=== PATIENT | male | born 1985 | race Caucasian/White ===

== ENCOUNTER 2019-05-09 18:53 | Emergency (ER) | payer SELFPAY | END 2019-05-09 19:27 | disposition left against medical advice (07) | LOC: ER 18:59 | DX: M79.672 Pain in left foot (principal); Z53.21 Procedure and treatment not carried out due to patient leaving prior to being seen by health care provider ==

== ENCOUNTER 2021-03-06 01:09 | Emergency (ER) | payer SELFPAY ==
[~2021-03-06] VITALS: Ht 190.5 cm; Wt 90.7 kg
[2021-03-06 02:25] LABS: Urine Bacteria MANY /hpf (None Seen); Urine Blood 1+ /uL (Negative); Urine Mucus FEW (None Seen); Urine Specific Gravity 1.024 (1.001-1.035); Urine WBC 1378 /hpf (0 - 3); Urine WBC Clumps PRESENT /hpf (None Seen)
[2021-03-06] MEDS ORDERED: AZITHROMYCIN 250 MG TAB PO ONE (03:45)
[2021-03-06] MEDS ORDERED: cefTRIAXone SOD 1,000 MG VL IM ONE (03:45)
[2021-03-06 03:58] VITALS: BP 135/89
[2021-03-06 04:13] LABS: Alcohol, Urine < 3.0 mg/dL (0-10); Amphetamine Screen, Urine POSITIVE (NEGATIVE); Barbiturate Scree,Urine NEGATIVE (NEGATIVE); Benzodiazephine Screen, Urine NEGATIVE (NEGATIVE); Cannabinoid Screen, Urine POSITIVE (NEGATIVE); Cocaine Screen, Urine NEGATIVE (NEGATIVE); Opiate Scree,Urine NEGATIVE (NEGATIVE); Phencyclidine Screen, Urine NEGATIVE (NEGATIVE)
[2021-03-06] MEDS ORDERED: IBUPROFEN 800 MG TAB PO ONE (04:15)
== END 2021-03-06 04:23 | disposition home or self-care (01) ==
LOC: ER 01:20
DX: N39.0 Urinary tract infection, site not specified (principal); F15.10 Other stimulant abuse, uncomplicated; F12.10 Cannabis abuse, uncomplicated; F17.210 Nicotine dependence, cigarettes, uncomplicated; Z20.2 Contact with and (suspected) exposure to infections with a predominantly sexual mode of transmission
CPT/HCPCS: 80307; 81001; 96372; 99283; J0696

== ENCOUNTER 2024-04-30 00:54 | Emergency (ER) | payer SELFPAY ==
[~2024-04-30] VITALS: Ht 190.5 cm; Wt 72.6 kg
[2024-04-30 01:37] LABS: Urine Bacteria None Seen /hpf (None Seen)
[2024-04-30 01:47] LABS: Urine Blood Negative /uL (Negative); Urine Clarity Clear (Clear); Urine Color Yellow (Yellow); Urine Mucus FEW (None Seen); Urine Protein, UAD TRACE (Negative); Urine Specific Gravity 1.034 (1.001-1.035); Urine Urobilinogen Normal (Negative); Urine WBC <1 /hpf (0 - 3); Urine pH 5.5 (5.0-9.0)
[2024-04-30 04:27] VITALS: BP 124/84; PULSE 80; RESP 16; TEMP 97.6; O2SAT 97
[2024-04-30] MEDS: IBUPROFEN 800 MG TAB PO ONE (04:41)
== END 2024-04-30 04:49 | disposition home or self-care (01) ==
LOC: ER 00:54
DX: F15.23 Other stimulant dependence with withdrawal (principal); M79.672 Pain in left foot; M79.671 Pain in right foot; F17.210 Nicotine dependence, cigarettes, uncomplicated
CPT/HCPCS: 81001

== ENCOUNTER 2024-05-03 22:30 | Emergency (ER) | payer SELFPAY ==
[~2024-05-03] VITALS: Ht 190.5 cm; Wt 84.5 kg
[2024-05-03 22:58] LABS: Basophils # (auto) 0.1 10 ^3/uL (0-0.2); Basophils % (auto) 1.3 % (0.0-2.0); Eosinophils # (auto) 0.3 10 ^3/uL (0-0.8); Eosinophils % (auto) 3.4 % (0.0-7.0); Hemoglobin 12.3 g/dL (13.5-17.5); Lymphocytes # (auto) 2.4 10 ^3/uL (0.4-5.4); Lymphocytes % (auto) 28.3 % (10.0-50.0); Mean Corpuscular Hemoglobin 29.7 pg (28.0-32.0); Mean Corpuscular Volume 87.2 fL (80.0-100.0); Monocytes # (auto) 0.8 10 ^3/uL (0-1.3); Monocytes % (auto) 9.5 % (0.0-12.0); Neutrophils # (auto) 4.9 10 ^3/uL (1.6-8.6); Neutrophils % (auto) 57.5 % (37.0-80.0); Red Blood Cells 4.13 10^6/uL (4.5-5.90); Red Cell Distribution Width 13.6 % (11.8-14.3); White Blood Cell 8.5 10^3/uL (4.4-10.8)
[2024-05-04 00:57] LABS: Alanine Aminotransferase 12 U/L (7-40); Alkaline Phosphatase 50 U/L (46-116); Anion Gap 4 (5-15); Aspartate Aminotransferase 9 U/L (13-40); BUN/Creatinine Ratio 17.2 (10.0-20.0); Bilirubin, Total 0.3 mg/dL (0.2-1.0); Blood Urea Nitrogen 17 mg/dL (9-23); Calcium 9.1 mg/dL (8.7-10.4); Carbon Dioxide 29 mmol/L (20-30); Chloride 108 mmol/L (98-107); Glucose 103 mg/dL (74-106); Potassium 3.9 mmol/L (3.5-5.1); Sodium 141 mmol/L (136-145); Total Protein 6.5 g/dL (5.7-8.2)
[2024-05-04 01:14] VITALS: BP 124/84; PULSE 90; RESP 16; TEMP 97.9; O2SAT 98
[2024-05-04 01:57] LABS: Partial Thromboplastin Time 26.2 SEC (24.5-34.5); Prothrombin Time 10.6 sec (9.3-11.8)
== END 2024-05-04 04:00 | disposition home or self-care (01) ==
LOC: ER 22:30
DX: R07.9 Chest pain, unspecified (principal); F19.10 Other psychoactive substance abuse, uncomplicated; F17.210 Nicotine dependence, cigarettes, uncomplicated; F15.10 Other stimulant abuse, uncomplicated
CPT/HCPCS: 36415; 71045; 80053; 83880; 84484; 85025; 85610; 85730; 93005

== ENCOUNTER 2024-05-08 16:51 | Emergency (ER) | payer SELFPAY ==
[2024-05-08 17:24] VITALS: BP 153/86; PULSE 107; RESP 18; TEMP 100.1; O2SAT 99
[2024-05-08] MEDS: cefTRIAXone SOD 1,000 MG VL IM ONE (17:36)
[2024-05-08] MEDS ORDERED: IBUP1TAB5 PO (17:51)
[2024-05-08] MEDS ORDERED: BACDST PO (17:51)
== END 2024-05-08 17:58 | disposition home or self-care (01) ==
LOC: ER 17:14
DX: K02.9 Dental caries, unspecified (principal); F15.10 Other stimulant abuse, uncomplicated; F19.10 Other psychoactive substance abuse, uncomplicated; F17.210 Nicotine dependence, cigarettes, uncomplicated
CPT/HCPCS: 96372; 99283; J0696

== ENCOUNTER 2025-05-10 01:49 | Emergency (ER) | payer MEDICAID ==
[~2025-05-10] VITALS: Ht 175.3 cm; Wt 68.2 kg
[~2025-05-10 01:49] MED LIST: BACDST PO; IBUP1TAB5 PO
[2025-05-10] MEDS ORDERED: IBUP-1456 PO (04:16)
[2025-05-10] MEDS ORDERED: CLIN1CAP70 PO (04:16)
[2025-05-10] MEDS ORDERED: PRED20TA2 PO (04:16)
[2025-05-10] MEDS ORDERED: MUPI2OIN2 EX (04:16)
--- NOTE | 2025-05-10 04:17 | ED.PDOC ---
History of Present Illness(SKN HPI Comments 39-year-old male presents to ER with complaints of wound check. Patient with past medical history significant for methamphetamine abuse, presents via EMS for ER for evaluation of wound to left side of face and right lower lip that he states developed one day ago. He rates his current facial pain an 8/10 and denies use of medications for current symptoms. Notes he has had intermittent yellow drainage to wounds on face. Patient also states he has a wound to right thigh that he would like to have evaluated ER today. Patient presents to ER ambulatory on arrival, afebrile, with steady gait, in no distress. Denies fever, body aches, chills, headache, nausea/vomiting or any further s ymptoms/complaints Chief Complaint: Wound Check Time Seen by MD: 02:11 Primary Care Provider: UNKNOWN History of Present Illness: Nurses Notes, Medications, Allergies Allergies: Coded Allergies: NO KNOWN ALLERGIES (Unverified , 03/06/21) Home Meds Active Scripts Prednisone (Prednisone) 20 Mg Tab, 20 MG PO BID for 5 Days, #10 TAB 0 Refills Prov:ANNABELLE BOYCE 05/10/25 Ibuprofen (Ibuprofen) 800 Mg Tab, 1 TAB PO TID PRN, #30 TAB 0 Refills Prov:ANNABELLE BOYCE 05/10/25 Mupirocin (Pseudomonas Fluores (Mupirocin) 2 % Oin, 2 % EX TID for 5 Days, #1 OIN 1 Refill Prov:ANNABELLE BOYCE 05/10/25 Clindamycin Hcl (Clindamycin Hcl) 300 Mg Cap, 300 MG PO QID for 7 Days, #28 CAP 0 Refills Prov:ANNABELLE BOYCE 05/10/25 Ibuprofen Micronized (Ibuprofen) 600 Mg Tab, 600 MG PO Q6HPRN PRN for 5 Days, #20 TAB Prov:GIOVANY CASTANON C T TECH 05/08/24 Sulfamethoxazole W/Trimethopri (Bactrim Ds Tablet) 1 Tab Tb, 1 TAB PO BID for 7 Days, #14 TAB Prov:GIOVANY CASTANON C T TECH 05/08/24 Information Source: Patient Mode of Arrival: EMS Past Medical History PAST MEDICAL HISTORY: Denies Surgical History: Denies all surgeries Family History Family History: Unknown Social History Smoker: Cigarettes, Less Than 1 Pack/Day Alcohol: Denies ETOH Use Drugs: Methamphetamine Lives In: Home Constitutional: denies: chills, diaphoresis, fatigue, fever, malaise, sweats, weakness, others EENTM: reports: others (As stated in HPI) Respiratory: denies: cough, hemoptysis, orthopnea, SOB at rest, shortness of breath, SOB with excertion, stridor, wheezing, others Cardiovascular: denies: chest pain, dizzy spells, diaphoresis, Dyspnea on exertion, edema, irregular heart beat, left arm pain, lightheadedness, palpitations, PND, syncope, others Gastrointestinal: denies: abdomen distended, abdominal pain, blood streaked bowels, constipated, diarrhea, dysphagia, difficulty swallowing, hematemesis, melena, nausea, poor appetite, poor fluid intake, rectal bleeding, rectal pain, vomiting, others Genitourinary: denies: burning, dysuria, flank pain, frequency, hematuria, incontinence, penile discharge, penile sore, pain, testicle pain, testicle swelling, urgency, others Neurological: denies: dizziness, fainting, headache, left sided numbness, left sided weakness, numbness, paresthesia, pre-existing deficit, right sided numbness, right sided weakness, seizure, speech problems, tingling, tremors, weakness, others Musculoskeletal: denies: back pain, gout, joint pain, joint swelling, muscle pain, muscle stiffness, neck pain, others Integumetry: reports: others (As stated in HPI) Allergic/Immunocompromised: denies: Difficulty Healing, Frequent Infections, Hives, Itching, others Hematologic/Lymphatic: denies: anemia, blood clots, easy bleeding, easy bruising, swollen glands, others Endocrine: denies: excessive hunger, excessive sweating, excessive thirst, excessive urination, flushing, intolerance to cold, intolerance to heat, unexplained weight gain, unexplained weight loss, others Psychiatric: denies: anxiety, bipolar disorder, depression, hopeless, panic disorder, schizophrenia, sleepless, suicidal, others Physical Exam General Appearance: No Apparent Distress HEENT: Normal ENT Inspection, PERRL/EOMI, Pharynx Normal, TMs Normal Neck: Full Range of Motion, Non-Tender, Normal Respiratory: Chest Non-Tender, Lungs Clear, No Accessory Muscle Use, No Respiratory Distress, Normal Breath Sounds Cardiovascular: No Murmur, No Gallop, Regular Rate/Rhythm Breast Exam: Deferred Gastrointestinal: NOT DONE Genitalia: Deferred Pelvic: Deferred Rectal: Deferred Extremities: Normal capillary refill, Normal range of motion Neurologic: Alert, No Motor Deficits, Normal Affect, Normal Mood, No Sensory Deficits Cerebellar Function: Normal Reflexes: Normal Skin: Dry, Warm, Other (2 wounds noted to left lower chin and right lower lip with mild surrounding swelling/TTP/erythema localized to wound edges. 1 cm papule also noted to right thigh with mild surroudning swelling/erythema. No flucturance/drainage to wounds noted) Peripheral Pulses: 2+ Radial (R), 2+ Radial (L), 2+ Brachial (R), 2+ Brachial (L) Lymphatic: No Adenopathy Was a procedure done? Was a procedure done?: No Sedation Sedation?: No Differential Diagnosis (INTG) Differential Diagnosis: Abscess, Impetigo Differential Diagnosis: Puncture Wound X-Ray, Labs, Meds, VS Vital Signs Date Time Temp Pulse Resp B/P (MAP) Pulse Ox O2 Delivery O2 Flow Rate FiO2 05/10/25 01:50 98.5 89 20 159/91 99 98.5 Rocephin 1 g IM ordered Solu-Medrol 125 mg IM ordered Ibuprofen 800 mg p.o. 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 take the medications below as prescribed Wound care/cleaning discussed and advised Advised to follow up in two days for wound check Advised to follow up with PCP in 1-2 days Patient verbalized understanding and agreeable with current plan of care Advised to return to ER immediately if symptoms worsen Time of 1ST Reevaluation: 03:54 Reevaluation 1ST: N/A Patient Education/Counseling: Diagnosis, Treatment, Prognosis, Need For Follow Up Family Education/Counseling: No Family Present SEPSIS Sepsis Screen Date sepsis recognized/suspect: May 10, 2025 Time Sepsis recognized/suspect: 015 Recent Procedure: No On Antibiotic Therapy: No Respiratory Rate >20: No Heart Rate >90: No Temp<36 C (96.8 F) or >38.3 C: No SBP <90 or MAP <65 mmHG: No New Acute Mental Status Change: No Is the patient on CPAP, BIPAP,: No Vital Signs Date Time Temp Pulse Resp B/P (MAP) Pulse Ox O2 Delivery O2 Flow Rate FiO2 05/10/25 01:50 98.5 89 20 159/91 99 98.5 Departure 1 Departure Time of Disposition: 04:12 Impression: Primary Impression: Facial cellulitis Disposition: HOME / SELF CARE / HOMELESS Condition: Stable e-Prescriptions Prednisone (Prednisone) 20 Mg Tab 20 MG PO BID for 5 Days, #10 TAB 0 Refills Prov: ANNABELLE BOYCE 05/10/25 Ibuprofen (Ibuprofen) 800 Mg Tab 1 TAB PO TID PRN, #30 TAB 0 Refills Prov: ANNABELLE BOYCE 05/10/25 Mupirocin (Pseudomonas Fluores (Mupirocin) 2 % Oin 2 % EX TID for 5 Days, #1 OIN 1 Refill Prov: ANNABELLE BOYCE 05/10/25 Clindamycin Hcl (Clindamycin Hcl) 300 Mg Cap 300 MG PO QID for 7 Days, #28 CAP 0 Refills Prov: ANNABELLE BOYCE 05/10/25 Discharged With: Friend Critical Care Note Critical Care Time?: No Stability Stability form required: No Heart Score Heart Score: Heart Score Response (Comments) Value History N/A 0 EKG N/A 0 Age N/A 0 Risk Factors N/A 0 Troponin N/A 0 Total 0 ANNABELLE BOYCE May 10, 2025 04:17
[2025-05-10] MEDS: methylPREDNISolone SOD SUCC 125 MG/2 ML VL IM ONE (04:28)
[2025-05-10] MEDS: cefTRIAXone SOD 1,000 MG VL IM ONE (04:28)
[2025-05-10] MEDS: LIDOCAINE 1% HCL (LOCAL ANESTH.) INJ 20ML MDV IJ ONE (04:29)
[2025-05-10] MEDS: IBUPROFEN 800 MG TAB PO ONE (04:29)
[2025-05-10 04:48] VITALS: BP 147/95; PULSE 93; RESP 16; TEMP 98.7; O2SAT 100
== END 2025-05-10 04:56 | disposition home or self-care (01) ==
LOC: EDBD 01:49 → ER 01:51
DX: L03.211 Cellulitis of face (principal); F17.210 Nicotine dependence, cigarettes, uncomplicated; F19.90 Other psychoactive substance use, unspecified, uncomplicated; Z79.899 Other long term (current) drug therapy; Z79.52 Long term (current) use of systemic steroids
CPT/HCPCS: 96372; 99284; J0696; J2003; J2919

== ENCOUNTER 2025-05-17 17:07 | Emergency (ER) | payer MEDICAID ==
[~2025-05-17] VITALS: Ht 190.5 cm; Wt 70.7 kg
[~2025-05-17 17:07] MED LIST changes: +CLIN1CAP70 PO; +IBUP-1456 PO; +MUPI2OIN2 EX; +PRED20TA2 PO
[2025-05-17] MEDS ORDERED: MUPI2CRE17 EX (18:45)
[2025-05-17] MEDS ORDERED: AUG875T PO (18:45)
--- NOTE | 2025-05-17 18:50 | ED.PDOC ---
History of Present Illness(SKN HPI Comments 39 year old male presents to the ED with a chief complaint of wound check onset today. Patient has been experiencing facial wound for about 2 weeks, was seen in this ED on 05/10/25 for same symptoms, was diagnosed with cellulitis, prescribed antibiotics. 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 For the past 5 days, noticed wound on chin is worsening, spreading, area is swollen. He noticed wound on RT thumb, concerned infection is spreading. Denies any PMHx as well as chest pain, shortness of breath, fevers, chills, nausea, vomiting, diarrhea, headache. No other symptoms or modifying factors present at this time. Chief Complaint: Abscess Time Seen by MD: 18:25 Primary Care Provider: UNKNOWN History of Present Illness: Medications, Allergies Allergies: Coded Allergies: NO KNOWN ALLERGIES (Unverified , 03/06/21) Home Meds Active Scripts Mupirocin Calcium (Topical) (MUPIROCIN) 2 % Cre, 2 % EX TID for 10 Days, #90 CRE Prov:GUICHO RUCKER MD 05/17/25 Amoxicillin & Pot Clavulanate (AUGMENTIN TABLET) 875 Mg Tb, 875 MG PO BID PRN for 10 Days, #20 TAB Prov:GUICHO RUCKER MD 05/17/25 Prednisone (Prednisone) 20 Mg Tab, 20 MG PO BID for 5 Days, #10 TAB 0 Refills Prov:ANNABELLE BOYCE 05/10/25 Ibuprofen (Ibuprofen) 800 Mg Tab, 1 TAB PO TID PRN, #30 TAB 0 Refills Prov:ANNABELLE BOYCE 05/10/25 Mupirocin (Pseudomonas Fluores (Mupirocin) 2 % Oin, 2 % EX TID for 5 Days, #1 OIN 1 Refill Prov:ANNABELLE BOYCE 05/10/25 Clindamycin Hcl (Clindamycin Hcl) 300 Mg Cap, 300 MG PO QID for 7 Days, #28 CAP 0 Refills Prov:ANNABELLE BOYCE 05/10/25 Ibuprofen Micronized (Ibuprofen) 600 Mg Tab, 600 MG PO Q6HPRN PRN for 5 Days, #20 TAB Prov:GIOVANY CASTANON 05/08/24 Sulfamethoxazole W/Trimethopri (Bactrim Ds Tablet) 1 Tab Tb, 1 TAB PO BID for 7 Days, #14 TAB Prov:GIOVANY CASTANON CRIMP SETTER 05/08/24 Information Source: Patient Mode of Arrival: Ambulatory Severity: Moderate Timing: Weeks Duration: Since onset Prehospital treatment: None Location: Face Associated Signs and Symptoms: Redness, Facial Swelling Past Medical History PAST MEDICAL HISTORY: Denies Surgical History: Denies all surgeries Family History Family History: Unknown Social History Smoker: Cigarettes, Less Than 1 Pack/Day Alcohol: Denies ETOH Use Drugs: Methamphetamine Lives In: Homeless Constitutional: denies: chills, diaphoresis, fatigue, fever, malaise, sweats, weakness, others EENTM: denies: blurred vision, double vision, ear bleeding, ear discharge, ear drainage, ear pain, ear ringing, eye pain, eye redness, hearing loss, mouth pain, mouth swelling, nasal discharge, nose bleeding, nose congestion, nose pain, photophobia, tearing, throat pain, throat swelling, voice changes, others Respiratory: denies: cough, hemoptysis, orthopnea, SOB at rest, shortness of breath, SOB with excertion, stridor, wheezing, others Cardiovascular: denies: chest pain, dizzy spells, diaphoresis, Dyspnea on exertion, edema, irregular heart beat, left arm pain, lightheadedness, palpitations, PND, syncope, others Gastrointestinal: denies: abdomen distended, abdominal pain, blood streaked bowels, constipated, diarrhea, dysphagia, difficulty swallowing, hematemesis, melena, nausea, poor appetite, poor fluid intake, rectal bleeding, rectal pain, vomiting, others Genitourinary: denies: burning, dysuria, flank pain, frequency, hematuria, incontinence, penile discharge, penile sore, pain, testicle pain, testicle swelling, urgency, others Neurological: denies: dizziness, fainting, headache, left sided numbness, left sided weakness, numbness, paresthesia, pre-existing deficit, right sided numbness, right sided weakness, seizure, speech problems, tingling, tremors, weakness, others Musculoskeletal: denies: back pain, gout, joint pain, joint swelling, muscle pain, muscle stiffness, neck pain, others Integumetry: reports: wounds; denies: bruises, change in color, change in hair /nails, dryness, laceration, lesions, lumps, rash, others Allergic/Immunocompromised: denies: Difficulty Healing, Frequent Infections, Hives, Itching, others Hematologic/Lymphatic: denies: anemia, blood clots, easy bleeding, easy bruising, swollen glands, others Endocrine: denies: excessive hunger, excessive sweating, excessive thirst, excessive urination, flushing, intolerance to cold, intolerance to heat, unexplained weight gain, unexplained weight loss, others Psychiatric: denies: anxiety, bipolar disorder, depression, hopeless, panic disorder, schizophrenia, sleepless, suicidal, others All Other Systems: Reviewed and Negative Physical Exam General Appearance: Normal HEENT: Normal ENT Inspection, Pharynx Normal, TMs Normal Neck: Full Range of Motion, Non-Tender, Normal, Normal Inspection Respiratory: Chest Non-Tender, Lungs Clear, No Accessory Muscle Use, No Respiratory Distress, Normal Breath Sounds Cardiovascular: No Edema, No JVD, No Murmur, No Gallop, Normal Peripheral Pulses, Regular Rate/Rhythm Breast Exam: Deferred Gastrointestinal: No Organomegaly, Non Tender, No Pulsatile Mass, Normal Bowel Sounds, Soft Genitalia: Deferred Pelvic: Deferred Rectal: Deferred Extremities: No calf tenderness, Normal capillary refill, Normal inspection, Normal range of motion, Non-tender, No pedal edema Musculoskeletal : Apperance: Normal Neurologic: Alert, count team clerk II-XII nml as Tested, No Motor Deficits, Normal Affect, Normal Mood, No Sensory Deficits Cerebellar Function: Normal Reflexes: Normal Skin: Dry, Normal Color, Warm Lymphatic: No Adenopathy Was a procedure done? Was a procedure done?: No X-Ray, Labs, Meds, VS Vital Signs Date Time Temp Pulse Resp B/P (MAP) Pulse Ox O2 Delivery O2 Flow Rate FiO2 05/17/25 22:50 98.9 84 19 139/87 (104) 98 98.9 05/17/25 17:10 98.4 100 18 143/89 98 98.4 Current Medications Medications (Trade) Dose Ordered Sig/Sukhwinder Route Start Time Stop Time Status Last Admin Amoxicillin/ Clavulanate Potassium (Augmentin Tablet) 875 mg ONCE ONCE PO 05/17/25 18:45 05/17/25 18:46 DC 05/17/25 22:48 Acetaminophen (Tylenol Tablet) 650 mg ONCE ONCE PO 05/17/25 22:45 05/17/25 22:46 DC 05/17/25 22:48 Time of 1ST Reevaluation: 18:55 Reevaluation 1ST: Unchanged Patient Education/Counseling: Diagnosis, Treatment Family Education/Counseling: No Family Present SEPSIS Sepsis Screen Date sepsis recognized/suspect: May 17, 2025 Time Sepsis recognized/suspect: 1709 Recent Procedure: No On Antibiotic Therapy: No Respiratory Rate >20: No Heart Rate >90: Yes Temp<36 C (96.8 F) or >38.3 C: No SBP <90 or MAP <65 mmHG: No New Acute Mental Status Change: No Is the patient on CPAP, BIPAP,: No Vital Signs Date Time Temp Pulse Resp B/P (MAP) Pulse Ox O2 Delivery O2 Flow Rate FiO2 05/17/25 22:50 98.9 84 19 139/87 (104) 98 98.9 05/17/25 17:10 98.4 100 18 143/89 98 98.4 Medications Medications Dose Ordered Sig/Sukhwinder Route Start Time Stop Time Status Last Admin Dose Admin Acetaminophen 650 mg ONCE ONCE PO 05/17/25 22:45 05/17/25 22:46 DC 05/17/25 22:48 Amoxicillin/ Clavulanate Potassium 875 mg ONCE ONCE PO 05/17/25 18:45 05/17/25 18:46 DC 05/17/25 22:48 Departure 1 Departure Time of Disposition: 20:00 Impression: Primary Impression: Erysipelas Additional Impressions: Erysipelas of face Facial cellulitis Disposition: HOME / SELF CARE / HOMELESS Condition: Stable e-Prescriptions Mupirocin Calcium (Topical) (MUPIROCIN) 2 % Cre 2 % EX TID for 10 Days, #90 CRE Prov: GUICHO RUCKER MD 05/17/25 Amoxicillin & Pot Clavulanate (AUGMENTIN TABLET) 875 Mg Tb 875 MG PO BID PRN for 10 Days, #20 TAB Prov: GUICHO RUCKER MD 05/17/25 Discharged With: Self Critical Care Note Critical Care Time?: No Stability Stability form required: No I personally scribed for GUICHO RUCKER MD ([email or web address]) on 05/17/25 at 18:50. Electronically submitted by Liliane Swanson ([email or web address]). GUICHO RUCKER MD May 17, 2025 18:50
[2025-05-17] MEDS: AMOXICILLIN/CLAVUL 875 MG TAB PO ONE (22:48)
[2025-05-17] MEDS: ACETAMINOPHEN 325 MG TAB PO ONE (22:48)
[2025-05-17 22:50] VITALS: BP 139/87; PULSE 84; RESP 19; TEMP 98.9; O2SAT 98
== END 2025-05-17 22:57 | disposition home or self-care (01) ==
LOC: ER 17:07
DX: A46 Erysipelas (principal); L03.211 Cellulitis of face; F17.210 Nicotine dependence, cigarettes, uncomplicated; F19.90 Other psychoactive substance use, unspecified, uncomplicated; Z59.00 Homelessness unspecified; Z79.52 Long term (current) use of systemic steroids; Z79.899 Other long term (current) drug therapy

== ENCOUNTER 2025-05-18 07:26 | Inpatient (IN) | payer MEDICAID ==
[~2025-05-18] VITALS: Ht 190.5 cm; Wt 69.7 kg
[~2025-05-18 07:26] MED LIST changes: +AUG875T PO; +MUPI2CRE17 EX
--- NOTE | 2025-05-18 07:55 | ED.PDOC ---
History of Present Illness(SKN HPI Comments 39 y/o M, with PMHx of illicit drug usage presents to the ED for CC of facial swelling. Patient states, he has been experiencing increased facial swelling with associated erythema and warmth [id number]. Patient reports, that he has been seen at [facility] 3x since, commencement of symptoms and they have yet to improve. 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 At this time patient has moderate swelling to his left lower jaw with a small abrasion to his left lower lip that appears to have purulent fluid. Patient denies fever, chills, sweats, nausea, or vomiting. No other symptoms or modifying factors are present at this time. Chief Complaint: Face pain Time Seen by MD: 07:40 Primary Care Provider: UNKNOWN History of Present Illness: Nurses Notes, Medications, Allergies Allergies: Coded Allergies: NO KNOWN ALLERGIES (Unverified , 03/06/21) Home Meds Active Scripts Mupirocin Calcium (Topical) (MUPIROCIN) 2 % Cre, 2 % EX TID for 10 Days, #90 CRE Prov:GUICHO RUCKER MD 05/17/25 Amoxicillin & Pot Clavulanate (AUGMENTIN TABLET) 875 Mg Tb, 875 MG PO BID PRN for 10 Days, #20 TAB Prov:GUICHO RUCKER MD 05/17/25 Prednisone (Prednisone) 20 Mg Tab, 20 MG PO BID for 5 Days, #10 TAB 0 Refills Prov:ANNABELLE BOYCE 05/10/25 Ibuprofen (Ibuprofen) 800 Mg Tab, 1 TAB PO TID PRN, #30 TAB 0 Refills Prov:ANNABELLE BOYCE 05/10/25 Mupirocin (Pseudomonas Fluores (Mupirocin) 2 % Oin, 2 % EX TID for 5 Days, #1 OIN 1 Refill Prov:ANNABELLE BOYCE 05/10/25 Clindamycin Hcl (Clindamycin Hcl) 300 Mg Cap, 300 MG PO QID for 7 Days, #28 CAP 0 Refills Prov:ANNABELLE BOYCE 05/10/25 Ibuprofen Micronized (Ibuprofen) 600 Mg Tab, 600 MG PO Q6HPRN PRN for 5 Days, #20 TAB Prov:GIOVANY CASTANON 05/08/24 Sulfamethoxazole W/Trimethopri (Bactrim Ds Tablet) 1 Tab Tb, 1 TAB PO BID for 7 Days, #14 TAB Prov:GIOVANY CASTANON [facility] 05/08/24 Information Source: Patient Mode of Arrival: Ambulatory Severity: Moderate Timing: Weeks Duration: Since onset Prehospital treatment: None Location: Face Mechanism: Spontaneous Onset Developed: Facial Swelling Object: None Condition of Object: None Retained Foreign Body: Unknown Wound Type: Abrasion Immunization Status of Animal: NA Tetanus: Unknown History of: None Associated Signs and Symptoms: Redness, Swelling, Pus, Facial Swelling Past Medical History PAST MEDICAL HISTORY: Denies Surgical History: Denies all surgeries Family History Family History: Unknown Social History Smoker: Cigarettes, Less Than 1 Pack/Day Alcohol: Denies ETOH Use Drugs: Methamphetamine Lives In: Homeless Constitutional: denies: chills, diaphoresis, fatigue, fever, malaise, sweats, weakness, others EENTM: reports: others (Facial pain, facial swelling); denies: blurred vision, double vision, ear bleeding, ear discharge, ear drainage, ear pain, ear ringing, eye pain, eye redness, hearing loss, mouth pain, mouth swelling, nasal discharge, nose bleeding, nose congestion, nose pain, photophobia, tearing, throat pain, throat swelling, voice changes Respiratory: denies: cough, hemoptysis, orthopnea, SOB at rest, shortness of breath, SOB with excertion, stridor, wheezing, others Cardiovascular: denies: chest pain, dizzy spells, diaphoresis, Dyspnea on exertion, edema, irregular heart beat, left arm pain, lightheadedness, palpitations, PND, syncope, others Gastrointestinal: denies: abdomen distended, abdominal pain, blood streaked bowels, constipated, diarrhea, dysphagia, difficulty swallowing, hematemesis, melena, nausea, poor appetite, poor fluid intake, rectal bleeding, rectal pain, vomiting, others Genitourinary: denies: burning, dysuria, flank pain, frequency, hematuria, incontinence, penile discharge, penile sore, pain, testicle pain, testicle swelling, urgency, others Neurological: denies: dizziness, fainting, headache, left sided numbness, left sided weakness, numbness, paresthesia, pre-existing deficit, right sided numbness, right sided weakness, seizure, speech problems, tingling, tremors, weakness, others Musculoskeletal: denies: back pain, gout, joint pain, joint swelling, muscle pain, muscle stiffness, neck pain, others Integumetry: denies: bruises, change in color, change in hair/nails, dryness, laceration, lesions, lumps, rash, wounds, others Allergic/Immunocompromised: denies: Difficulty Healing, Frequent Infections, Hives, Itching, others Hematologic/Lymphatic: denies: anemia, blood clots, easy bleeding, easy bruising, swollen glands, others Endocrine: denies: excessive hunger, excessive sweating, excessive thirst, excessive urination, flushing, intolerance to cold, intolerance to heat, unexplained weight gain, unexplained weight loss, others All Other Systems: Reviewed and Negative Physical Exam General Appearance: No Apparent Distress, Normal HEENT: Normal ENT Inspection, Pharynx Normal, Other (swelling to the left lower jaw and lips, erythema, warmth) Neck: Full Range of Motion, Non-Tender, Normal, Normal Inspection Respiratory: Chest Non-Tender, Lungs Clear, No Accessory Muscle Use, No Respiratory Distress, Normal Breath Sounds Cardiovascular: No Edema, No Murmur, No Gallop, Normal Peripheral Pulses, Regular Rate/Rhythm Breast Exam: Deferred Gastrointestinal: No Organomegaly, Non Tender, No Pulsatile Mass, Normal Bowel Sounds, Soft Genitalia: Deferred Pelvic: Deferred Rectal: Deferred Extremities: No calf tenderness, Normal capillary refill, Normal inspection, No rmal range of motion, Non-tender, No pedal edema Musculoskeletal : Apperance: Normal Neurologic: Alert, managing editor II-XII nml as Tested, No Motor Deficits, Normal Affect, Normal Mood, No Sensory Deficits Cerebellar Function: Normal Reflexes: Normal Skin: Dry, Other (abrasion to left lower lip with purulent drainage) Lymphatic: No Adenopathy Was a procedure done? Was a procedure done?: No Differential Diagnosis (INTG) Differential Diagnosis: Abscess, Cellulitis, Erysipelas X-Ray, Labs, Meds, VS Vital Signs Date Time Temp Pulse Resp B/P (MAP) Pulse Ox O2 Delivery O2 Flow Rate FiO2 05/18/25 08:30 79 16 99 Room Air* 0 21 05/18/25 08:30 99.1 79 14 145/92 (109) 99 99.1 05/18/25 07:31 97.6 90 16 150/106 98 97.6 Lab Test 05/18/25 08:15 Range/Units White Blood Count 12.8 H 4.4-10.8 10^3/uL Red Blood Count 4.46 L 4.5-5.90 10^6/uL Hemoglobin 13.0 L 13.5-17.5 g/dL Hematocrit 38.3 L 41.0-53.0 % Mean Corpuscular Volume 85.9 80.0-100.0 fL Mean Corpuscular Hemoglobin 29.2 28.0-32.0 pg Mean Corpuscular Hemoglobin Concent 34.0 32.0-36.0 g/dL Red Cell Distribution Width 14.1 11.8-14.3 % Platelet Count 426 140-450 10^3/uL Mean Platelet Volume 8.4 6.9-10.8 fL Neutrophils (%) (Auto) 76.4 37.0-80.0 % Lymphocytes (%) (Auto) 13.6 10.0-50.0 % Monocytes (%) (Auto) 7.7 0.0-12.0 % Eosinophils (%) (Auto) 1.3 0.0-7.0 % Basophils (%) (Auto) 1.0 0.0-2.0 % Neutrophils # (Auto) 9.8 H 1.6-8.6 10 ^3/uL Lymphocytes # (Auto) 1.7 0.4-5.4 10 ^3/uL Monocytes # (Auto) 1.0 0-1.3 10 ^3/uL Eosinophils # (Auto) 0.2 0-0.8 10 ^3/uL Basophils # (Auto) 0.1 0-0.2 10 ^3/uL Nucleated Red Blood Cells 0.0 % Sodium Level 138 136-145 mmol/L Potassium Level 4.0 3.5-5.1 mmol/L Chloride Level 103 98-107 mmol/L Carbon Dioxide Level 25 20-31 mmol/L Anion Gap 10 5-15 Blood Urea Nitrogen 13 9-23 mg/dL Creatinine 0.79 0.700-1.30 mg/dL Glomerular Filtration Rate Calc 115 >90 mL/min BUN/Creatinine Ratio 16.5 10.0-20.0 Serum Glucose 99 74-106 mg/dL Lactic Acid Level 0.5 0.4-2.0 mmol/L Calcium Level 9.3 8.7-10.4 mg/dL Current Medications Medications (Trade) Dose Ordered Sig/Sukhwinder Route Start Time Stop Time Status Last Admin Vancomycin HCl 250 ml @ 250 mls/hr ONCE ONCE IV 05/18/25 08:15 05/18/25 09:14 DC 05/18/25 09:10 Time of 1ST Reevaluation: 08:10 Reevaluation 1ST: Unchanged Patient Education/Counseling: Diagnosis, Treatment Family Education/Counseling: No Family Present SEPSIS Sepsis Screen Date sepsis recognized/suspect: May 18, 2025 Time Sepsis recognized/suspect: 729 Recent Procedure: No On Antibiotic Therapy: Yes Respiratory Rate >20: No Heart Rate >90: No Temp<36 C (96.8 F) or >38.3 C: No SBP <90 or MAP <65 mmHG: No New Acute Mental Status Change: No Is the patient on CPAP, BIPAP,: No Physician Orders Blood Culture (05/18/25 08:03) Vital Signs Date Time Temp Pulse Resp B/P (MAP) Pulse Ox O2 Delivery O2 Flow Rate FiO2 05/18/25 08:30 79 16 99 Room Air* 0 21 05/18/25 08:30 99.1 79 14 145/92 (109) 99 99.1 05/18/25 07:31 97.6 90 16 150/106 98 97.6 Laboratory Tests Test 05/18/25 08:15 Lactic Acid Level 0.5 mmol/L (0.4-2.0) White Blood Count 12.8 10^3/uL (4.4-10.8) H Medications Medications Dose Ordered Sig/Sukhwinder Route Start Time Stop Time Status Last Admin Dose Admin Vancomycin HCl 250 ml @ 250 mls/hr ONCE ONCE IV 05/18/25 08:15 05/18/25 09:14 DC 05/18/25 09:10 Departure 1 Departure Time of Disposition: 10:32 (Patient with a worsening cellulitis. We will admit patient for further workup and expert consultation) Impression: Primary Impression: Facial cellulitis Disposition: ADMITTED INPATIENT Admit to: Med Surg Condition: Serious Critical Care Note Critical Care Time?: No Stability Stability form required: No Heart Score Heart Score: Heart Score Response (Comments) Value History N/A 0 EKG N/A 0 Age N/A 0 Risk Factors N/A 0 Troponin N/A 0 Total 0 I personally scribed for LEONIDES YOUNG MD ([email or web address]) on 05/18/25 at 07:55. Electronically submitted by Naa Ferrari ([email or web address]). LEONIDES YOUNG MD May 18, 2025 07:55
[2025-05-18 08:30] VITALS: PULSE 79; RESP 16; O2SAT 99
[2025-05-18 09:02] LABS: Hematocrit 38.3 % (41.0-53.0); Hemoglobin 13.0 g/dL (13.5-17.5); Mean Corpuscular Hemoglobin 29.2 pg (28.0-32.0); Mean Corpuscular Volume 85.9 fL (80.0-100.0); Nucleated Red Blood Cells % 0.0 %
[2025-05-18 09:07] LABS: Chloride 103 mmol/L (98-107); Potassium 4.0 mmol/L (3.5-5.1); Sodium 138 mmol/L (136-145)
[2025-05-18 09:08] LABS: Anion Gap 10 (5-15); Calcium 9.3 mg/dL (8.7-10.4); Carbon Dioxide 25 mmol/L (20-31)
[2025-05-18] MEDS: VANCOMYCIN 1GM/250ML KIT 250 ML IV ONE (09:10)
[2025-05-18 09:13] LABS: BUN/Creatinine Ratio 16.5 (10.0-20.0); Blood Urea Nitrogen 13 mg/dL (9-23); Glucose 99 mg/dL (74-106)
[2025-05-18] MEDS: KETOROLAC TROMETH 30 MG/ML 1ML VIAL IV ONE (13:35)
[2025-05-18] MEDS ORDERED: MORPHINE SULFATE INJ 2 MG/ml SYRG IV PRN (14:45)
[2025-05-18] MEDS ORDERED: HYDROcodone-ACET 5/325MG TAB PO PRN (14:45)
[2025-05-18] MEDS ORDERED: VANCOMYCIN PER PHARMACY 0 MG IV SCH (14:45)
[2025-05-18] MEDS ORDERED: ONDANSETRON HCL 4 MG/2 ML VIAL IV PRN (14:45)
--- NOTE | 2025-05-18 15:10 | DVHHP2 ---
History of Present Illness Reason for Visit: Facial pain and swelling History of Present Illness Sd Yoder is a 39-year-old male with past medical history of marijuana and cigarette use who presents to the ED with facial swelling and pain that occurred 2 weeks ago. Patient states that he just suddenly woke up with i t. He also reports that he is homeless. Patient denies any recent trauma or injury, recent sick contacts, recent travels, recent ingestion of spoiled food, chest pain, fever, chills, lightheadedness, weakness, dizziness, urinary symptoms, shortness of breath, abdominal pain, nausea, vomiting, or diarrhea. Past Surgical History: None Family History: None Smoke: <1 pack per day ALCOHOL: none Drugs: Marijuana Lives: Homeless Domestic Violence: Neg Review of Systems Skin: Lesions Allergies: Coded Allergies: NO KNOWN ALLERGIES (Unverified , 03/06/21) Exam Vital Signs Vital Signs Date Time Temp Pulse Resp B/P (MAP) Pulse Ox O2 Delivery O2 Flow Rate FiO2 05/18/25 08:30 79 16 99 Room Air* 0 21 05/18/25 08:30 99.1 145/92 (109) 99.1 General Appearance: Alert, Oriented X3, Cooperative, No acute distress HEENT: Atraumatic, PERRLA, EOMI, Mucous membr. moist/pink Respiratory: Clear to auscultation, Normal air movement Cardiovascular: Regular rate, Normal S1, Normal S2, No murmurs Abdominal: Normal bowel sounds, Soft Extremities: Normal pulses, No tenderness/swelling Neuro: Normal gait, Normal speech, Strength at 5/5 X4 ext, Normal tone, Sensation intact Psych/Mental Status: Mental status NL, Mood NL Labs/Xrays Labs Test 05/18/25 08:15 Range/Units White Blood Count 12.8 H 4.4-10.8 10^3/uL Red Blood Count 4.46 L 4.5-5.90 10^6/uL Hemoglobin 13.0 L 13.5-17.5 g/dL Hematocrit 38.3 L 41.0-53.0 % Mean Corpuscular Volume 85.9 80.0-100.0 fL Mean Corpuscular Hemoglobin 29.2 28.0-32.0 pg Mean Corpuscular Hemoglobin Concent 34.0 32.0-36.0 g/dL Red Cell Distribution Width 14.1 11.8-14.3 % Platelet Count 426 140-450 10^3/uL Mean Platelet Volume 8.4 6.9-10.8 fL Neutrophils (%) (Auto) 76.4 37.0-80.0 % Lymphocytes (%) (Auto) 13.6 10.0-50.0 % Monocytes (%) (Auto) 7.7 0.0-12.0 % Eosinophils (%) (Auto) 1.3 0.0-7.0 % Basophils (%) (Auto) 1.0 0.0-2.0 % Neutrophils # (Auto) 9.8 H 1.6-8.6 10 ^3/uL Lymphocytes # (Auto) 1.7 0.4-5.4 10 ^3/uL Monocytes # (Auto) 1.0 0-1.3 10 ^3/uL Eosinophils # (Auto) 0.2 0-0.8 10 ^3/uL Basophils # (Auto) 0.1 0-0.2 10 ^3/uL Nucleated Red Blood Cells 0.0 % Sodium Level 138 136-145 mmol/L Potassium Level 4.0 3.5-5.1 mmol/L Chloride Level 103 98-107 mmol/L Carbon Dioxide Level 25 20-31 mmol/L Anion Gap 10 5-15 Blood Urea Nitrogen 13 9-23 mg/dL Creatinine 0.79 0.700-1.30 mg/dL Glomerular Filtration Rate Calc 115 >90 mL/min BUN/Creatinine Ratio 16.5 10.0-20.0 Serum Glucose 99 74-106 mg/dL Lactic Acid Level 0.5 0.4-2.0 mmol/L Calcium Level 9.3 8.7-10.4 mg/dL SEPSIS Sepsis Screen Date sepsis recognized/suspect: May 18, 2025 Time Sepsis recognized/suspect: 829 Recent Procedure: No On Antibiotic Therapy: No Respiratory Rate >20: No Heart Rate >90: No Temp<36 C (96.8 F) or >38.3 C: No SBP <90 or MAP <65 mmHG: No New Acute Mental Status Change: No Is the patient on CPAP, BIPAP,: No Physician Orders Blood Culture (05/18/25 08:03) Vital Signs Date Time Temp Pulse Resp B/P (MAP) Pulse Ox O2 Delivery O2 Flow Rate FiO2 05/18/25 08:30 79 16 99 Room Air* 0 21 05/18/25 08:30 99.1 79 14 145/92 (109) 99 99.1 05/18/25 07:31 97.6 90 16 150/106 98 97.6 Laboratory Tests Test 05/18/25 08:15 Lactic Acid Level 0.5 mmol/L (0.4-2.0) White Blood Count 12.8 10^3/uL (4.4-10.8) H Medications Medications Dose Ordered Sig/Sukhwinder Route Start Time Stop Time Status Last Admin Dose Admin Ketorolac Tromethamine 15 mg ONCE ONCE IV 05/18/25 13:15 05/18/25 13:16 DC 05/18/25 13:35 15 MG Vancomycin HCl 250 ml @ 250 mls/hr ONCE ONCE IV 05/18/25 08:15 05/18/25 09:14 DC 05/18/25 09:10 250 MLS/HR Assessment/Plan Assessment/Plan Assessment Intractable facial swelling likely due to cellulitis versus abscess Leukocytosis likely due to cellulitis versus abscess Marijuana use Tobacco use Plan Admit to med surge Antiemetics Pain management IV antibiotics-vancomycin +Zosyn CT maxillofacial ordered Lactic Blood cultures UA UDS Wound culture with Gram stain Diet Home medications reconciled DVT prophylaxis-Lovenox PUD prophylaxis-not indicated history of GERD or GI bleed Discussed plan of care with patient and nurse Social work- patient homeless [id number] Behavior change smoking greater than 10 minutes about use of other options also gave option of nicotine patch [id number] Preventive counseling healthy eating habits, physical activity, and regular checkups Plan discussed with: Patient Date of Service: May 18, 2025 Billing Provider: JENNIFFER CAGLE Common Visit Codes: [id number] INP/OBS CARE (HIGH) Secondary Visit Codes: [id number] COUNSELING IND, [id number] CHNG SMOKING >10MIN JENNIFFER CAGLE May 18, 2025 15:10
--- NOTE | 2025-05-18 15:53 | DVH ---
EXAM: CT MAXILLOFACIAL WITHOUT INDICATION: r/o abscess EXAM DATE: 05/18/2025 03:18 PM COMPARISON: None TECHNIQUE: Multiple axial CT images of the maxilla and face were obtained using bone algorithm. Axial and coronal reformatting was done. Bone and soft tissue windows were reviewed. Radiation Dose Information: CT Dose: CTDI volume is 62.5 mGy. Dose-length product is 1225.99 mGy*cm Findings: Limited evaluation given noncontrast technique. There is no evidence of an acute fracture or traumatic subluxations. No evidence of lytic, blastic, or osseous destructive lesions. The paranasal sinuses, middle ear cavities, and mastoid air cells are normally aerated. The globes an d orbits are within normal limits. The nasal septum, nasal cavity, nasopharynx, and oropharynx are grossly unremarkable. No definite focal fluid collections. Mild right buccal soft tissue edema with mental skin thickening. The paraspinal and neck soft tissues appear within normal limits. Impression: 1. Limited evaluation given noncontrast technique. 2. No acute osseous abnormalities. 3. No definite focal fluid collections. 4. Mild right buccal soft tissue edema with mental skin thickening.
[2025-05-18 16:25] VITALS: BP_SYST 104; BP_SYST 123; BP_DIAS 62; BP_DIAS 68; PULSE 89; PULSE 93; RESP 16; RESP 18; TEMP 97.4; TEMP 98.1; O2SAT 92; O2SAT 96
[2025-05-18 16:27] VITALS: BP 130/93; PULSE 93; RESP 18; TEMP 97.7; O2SAT 96
[2025-05-18] MEDS: VANCOMYCIN 1GM/250ML KIT 250 ML IV SCH (17:00)
[2025-05-18 19:02] VITALS: BP 157/107; PULSE 96; RESP 18; TEMP 97.9; O2SAT 98
[2025-05-18 20:00] VITALS: PULSE 88; RESP 20; O2SAT 99
[2025-05-18] MEDS: ACETAMINOPHEN 325 MG TAB PO PRN (20:14)
[2025-05-18 20:25] LABS: Urine Protein, UAD TRACE (Negative)
[2025-05-18 20:38] LABS: Cannabinoid Screen, Urine Pos (NEGATIVE)
[2025-05-18 20:43] LABS: Amphetamine Screen, Urine Pos (NEGATIVE); Barbiturate Scree,Urine Neg (NEGATIVE); Benzodiazephine Screen, Urine Neg (NEGATIVE); Cocaine Screen, Urine Neg (NEGATIVE); Opiate Scree,Urine Neg (NEGATIVE); Phencyclidine Screen, Urine Neg (NEGATIVE)
[2025-05-18 21:00] VITALS: BP 145/88; PULSE 88; RESP 20; TEMP 98; O2SAT 99
[2025-05-18] MEDS: PIPERACILLIN-TAZOB 3.375GM 100 ML IV SCH (21:53)
[2025-05-19] VITALS (7 sets, daily range): BP systolic 123–142; BP diastolic 73–89; PULSE 69–90; RESP 17–20; TEMP 97.3–98.7; O2SAT 95–100
[2025-05-19 08:11] LABS: Hematocrit 37.6 % (41.0-53.0); Hemoglobin 12.9 g/dL (13.5-17.5); Mean Corpuscular Hemoglobin 29.4 pg (28.0-32.0); Mean Corpuscular Volume 85.8 fL (80.0-100.0); Nucleated Red Blood Cells % 0.0 %
[2025-05-19] MEDS: PIPERACILLIN-TAZOB 3.375GM 100 ML IV ONE (08:18)
[2025-05-19 08:21] LABS: Alanine Aminotransferase 10 U/L (7-40); Albumin 3.8 g/dL (3.2-4.8); Alkaline Phosphatase 53 U/L (46-116); Anion Gap 8 (5-15); BUN/Creatinine Ratio 15.3 (10.0-20.0); Bilirubin, Total 0.3 mg/dL (0.2-1.0); Blood Urea Nitrogen 13 mg/dL (9-23); Calcium 9.2 mg/dL (8.7-10.4); Carbon Dioxide 29 mmol/L (20-31); Chloride 102 mmol/L (98-107); Glucose 106 mg/dL (74-106); Potassium 4.5 mmol/L (3.5-5.1); Sodium 139 mmol/L (136-145); Total Protein 6.5 g/dL (5.7-8.2)
[2025-05-19] MEDS: ENOXAPARIN SOD 40 MG/0.4 ML SYRINGE SC SCH (09:54)
--- NOTE | 2025-05-19 12:30 | DVHPN2 ---
Subjective The patient is seen and examined at bedside. No complaint today. Reviewed: Care Plan, H&P, Labs, Medications, Previous Orders, Radiology Changes from previous H/P or p: No Changes Skin: Lesions Objective Vitals Vital Signs Date Time Temp Pulse Resp B/P (MAP) Pulse Ox O2 Delivery O2 Flow Rate FiO2 05/19/25 09:00 97.3 69 18 135/85 (102) 96 97.3 05/19/25 08:00 Room Air* 0 21 Intake/Output Intake and Output 05/19/25 07:00 Intake Total 550 ml Balance 550 ml Intake Oral 300 ml IV Total 250 ml # Voids 1 General Appearance: Alert, Oriented X3, Cooperative, No acute distress HEENT: PERRLA, EOMI, Mucous membr. moist/pink, Other (Facial swelling) Neck: Supple Lungs: Clear to auscultation, Normal air movement Cardiovascular: Regular rate, Normal S1, Normal S2, No murmurs, Gallops, Rubs Abdomen: Normal bowel sounds, Soft, No tenderness Neuro: Cranial nerves 3-12 NL Medications Current Medications Medications Dose Ordered Sig/Sukhwinder Route Start Time Stop Time Status Last Admin Dose Admin Piperacillin Sod/ Tazobactam Sod 100 ml @ 25 mls/hr Q8HR IV 05/18/25 22:00 05/19/25 05:29 25 MLS/HR Vancomycin HCl 0 ml @ 0 mls/hr UD IV 05/18/25 14:45 Acetaminophen/ Hydrocodone Bitart 1 tab Q4HP PRN PO 05/18/25 14:45 Ondansetron HCl 4 mg Q4HP PRN IV 05/18/25 14:45 Enoxaparin Sodium 40 mg DAILY SC 05/19/25 10:00 Acetaminophen 650 mg Q6HP PRN PO 05/18/25 14:45 05/19/25 05:29 650 MG Morphine Sulfate 2 mg Q4HPRN PRN IV 05/18/25 14:45 Vancomycin HCl 250 ml @ 200 mls/hr Q8H IV 05/18/25 17:00 05/19/25 09:54 200 MLS/HR Laboratory Results Laboratory Tests 05/19/25 07:00 Chemistry Test 05/19/25 07:00 Albumin 3.8 g/dL (3.2-4.8) Calcium Level 9.2 mg/dL (8.7-10.4) Total Protein 6.5 g/dL (5.7-8.2) LFT Test 05/19/25 07:00 Alanine Aminotransferase (ALT) 10 U/L (7-40) Alkaline Phosphatase 53 U/L (46-116) Aspartate Amino Transferase (AST) 10 U/L (13-40) L Total Bilirubin 0.3 mg/dL (0.2-1.0) Urinalysis Test 05/18/25 15:00 Urine Color Yellow (Yellow) Urine Clarity Clear (Clear) Urine pH 6.0 (5.0-9.0) Urine Specific [place] 1.024 (1.001-1.035) Urine Protein Trace (Negative) H Urine Ketones Negative (Negative) Urine Blood Negative /uL (Negative) Urine Nitrite Negative (Negative) Urine Bilirubin Negative (Negative) Urine Urobilinogen 2 mg/dL (Negative) H Urine Leukocyte Esterase Negative /uL (Negative) Urine RBC 2 /hpf (0 - 3) Urine Microscopic WBC 3 /HPF (0-3) Urine Squamous Epithelial Cells Few /hpf (<5) Urine Calcium Oxalate Crystals Few (None Seen) Urine Bacteria None seen /hpf (None Seen) Urine Mucus Few (None Seen) Urine Glucose Normal mg/dL (Normal) Microbiology Microbiology Date/Time Source Procedure Growth Status 05/18/25 15:00 Face Gram Stain - Final Resulted 05/18/25 15:00 Face Wound Culture - Preliminary Resulted 05/18/25 08:15 Blood Blood Culture - Preliminary NO GROWTH AFTER 24 HOURS OF INCUBATION. Resulted Labs and/or images reviewed: Labs reviewed by me Assessment/Plan Assessment/Plan Intractable facial swelling likely due to cellulitis versus abscess Leukocytosis likely due to cellulitis Marijuana use Tobacco use Continuing current management. CT facial maxilla showed no acute abscess Continuing IV antibiotic vancomycin and Zosyn Continuing pain medication Advised to stop smoking and stop marijuana more than 15 minutes This medical document was created using an electronic medical record system with M*M flurency direct computerized dictation system. Although this document has been carefully reviewed, there may still be some phonetic and typographical errors. These areas are purely typographical due to imperfections of the software programs, and do not reflect any compromise in the patient's medical care. Plan discussed with: Patient Date of Service: May 19, 2025 Billing Provider: MARKY OLIVER MD Common Visit Codes: [id number] INP/OBS CARE(HIGH) MARKY OLIVER MD May 19, 2025 12:30
[2025-05-19] MEDS: VANCOMYCIN 1.75GM/350ML 350 ML IV SCH (20:06)
[2025-05-20] VITALS (7 sets, daily range): BP systolic 113–133; BP diastolic 69–93; PULSE 62–80; RESP 17–18; TEMP 97.9–98.3; O2SAT 95–99
[2025-05-20 07:08] LABS: Hematocrit 37.7 % (41.0-53.0); Hemoglobin 13.1 g/dL (13.5-17.5); Mean Corpuscular Hemoglobin 29.7 pg (28.0-32.0); Mean Corpuscular Volume 85.5 fL (80.0-100.0); Nucleated Red Blood Cells % 0.0 %
--- NOTE | 2025-05-20 10:02 | DVHPN2 ---
Subjective The patient is seen and examined at bedside. No complaint today. Reviewed: Care Plan, H&P, Labs, Medications, Previous Orders, Radiology Changes from previous H/P or p: No Changes Skin: Lesions Objective Vitals Vital Signs Date Time Temp Pulse Resp B/P (MAP) Pulse Ox O2 Delivery O2 Flow Rate FiO2 05/20/25 09:00 98.0 70 17 133/89 (104) 97 98.0 05/19/25 20:00 Room Air* 0 21 Intake/Output Intake and Output 05/20/25 07:00 Intake Total 2550 ml Balance 2550 ml Intake Oral 2000 ml IV Total 550 ml # Voids 8 General Appearance: Alert, Oriented X3, Cooperative, No acute distress HEENT: PERRLA, EOMI, Mucous membr. moist/pink, Other (Facial swelling) Neck: Supple Lungs: Clear to auscultation, Normal air movement Cardiovascular: Regular rate, Normal S1, Normal S2, No murmurs, Gallops, Rubs Abdomen: Normal bowel sounds, Soft, No tenderness Neuro: Cranial nerves 3-12 NL Medications Current Medications Medications Dose Ordered Sig/Sukhwinder Route Start Time Stop Time Status Last Admin Dose Admin Piperacillin Sod/ Tazobactam Sod 100 ml @ 25 mls/hr Q8HR IV 05/18/25 22:00 05/20/25 05:06 25 MLS/HR Vancomycin HCl 0 ml @ 0 mls/hr UD IV 05/18/25 14:45 Acetaminophen/ Hydrocodone Bitart 1 tab Q4HP PRN PO 05/18/25 14:45 Ondansetron HCl 4 mg Q4HP PRN IV 05/18/25 14:45 Enoxaparin Sodium 40 mg DAILY SC 05/19/25 10:00 Acetaminophen 650 mg Q6HP PRN PO 05/18/25 14:45 05/20/25 05:07 650 MG Morphine Sulfate 2 mg Q4HPRN PRN IV 05/18/25 14:45 Vancomycin HCl 350 ml @ 200 mls/hr Q12H IV 05/19/25 20:00 05/20/25 09:32 200 MLS/HR Laboratory Results Laboratory Tests 05/19/25 07:00 05/20/25 06:04 Urinalysis Test 05/18/25 15:00 Urine Color Yellow (Yellow) Urine Clarity Clear (Clear) Urine pH 6.0 (5.0-9.0) Urine Specific [place] 1.024 (1.001-1.035) Urine Protein Trace (Negative) H Urine Ketones Negative (Negative) Urine Blood Negative /uL (Negative) Urine Nitrite Negative (Negative) Urine Bilirubin Negative (Negative) Urine Urobilinogen 2 mg/dL (Negative) H Urine Leukocyte Esterase Negative /uL (Negative) Urine RBC 2 /hpf (0 - 3) Urine Microscopic WBC 3 /HPF (0-3) Urine Squamous Epithelial Cells Few /hpf (<5) Urine Calcium Oxalate Crystals Few (None Seen) Urine Bacteria None seen /hpf (None Seen) Urine Mucus Few (None Seen) Urine Glucose Normal mg/dL (Normal) Microbiology Microbiology Date/Time Source Procedure Growth Status 05/18/25 15:00 Face Gram Stain - Final Resulted 05/18/25 15:00 Face Wound Culture - Preliminary Resulted 05/18/25 08:15 Blood Blood Culture - Preliminary NO GROWTH AFTER 48 HOURS OF INCUBATION. Resulted Labs and/or images reviewed: Labs reviewed by me Assessment/Plan Assessment/Plan Intractable facial swelling likely due to cellulitis versus abscess Leukocytosis likely due to cellulitis Marijuana use Tobacco use Continuing current management. CT facial maxilla showed no acute abscess Continuing IV antibiotic vancomycin and Zosyn Continuing pain medication Advised to stop smoking and stop marijuana more than 15 minutes This medical document was created using an electronic medical record system with M*M flurency direct computerized dictation system. Although this document has been carefully reviewed, there may still be some phonetic and typographical errors. These areas are purely typographical due to imperfections of the software programs, and do not reflect any compromise in the patient's medical care. Plan discussed with: Patient Date of Service: May 20, 2025 Billing Provider: MARKY OLIVER MD Common Visit Codes: [id number] INP/OBS CARE(HIGH) MARKY OLIVER MD May 20, 2025 10:02
[2025-05-21] VITALS (7 sets, daily range): BP systolic 115–145; BP diastolic 73–96; PULSE 60–74; RESP 18–20; TEMP 96.9–98.5; O2SAT 95–98
[2025-05-21 07:25] LABS: Hematocrit 40.5 % (41.0-53.0); Hemoglobin 13.8 g/dL (13.5-17.5); Mean Corpuscular Hemoglobin 29.2 pg (28.0-32.0); Mean Corpuscular Volume 85.8 fL (80.0-100.0); Nucleated Red Blood Cells % 0.0 %
--- NOTE | 2025-05-21 11:28 | DVHPN2 ---
Subjective The patient is seen and examined at bedside. No complaint today. Reviewed: Care Plan, H&P, Labs, Medications, Previous Orders, Radiology Changes from previous H/P or p: No Changes Skin: Lesions Objective Vitals Vital Signs Date Time Temp Pulse Resp B/P (MAP) Pulse Ox O2 Delivery O2 Flow Rate FiO2 05/21/25 09:00 97.2 60 20 134/96 (109) 95 97.2 05/21/25 08:00 Room Air* 0 21 Intake/Output Intake and Output 05/21/25 07:00 Intake Total 1600 ml Balance 1600 ml Intake Oral 600 ml IV Total 1000 ml # Voids 4 General Appearance: Alert, Oriented X3, Cooperative, No acute distress HEENT: PERRLA, EOMI, Mucous membr. moist/pink, Other (Facial swelling) Neck: Supple Lungs: Clear to auscultation, Normal air movement Cardiovascular: Regular rate, Normal S1, Normal S2, No murmurs, Gallops, Rubs Abdomen: Normal bowel sounds, Soft, No tenderness Neuro: Cranial nerves 3-12 NL Medications Current Medications Medications Dose Ordered Sig/Sukhwinder Route Start Time Stop Time Status Last Admin Dose Admin Piperacillin Sod/ Tazobactam Sod 100 ml @ 25 mls/hr Q8HR IV 05/18/25 22:00 05/21/25 05:14 25 MLS/HR Vancomycin HCl 0 ml @ 0 mls/hr UD IV 05/18/25 14:45 Acetaminophen/ Hydrocodone Bitart 1 tab Q4HP PRN PO 05/18/25 14:45 Ondansetron HCl 4 mg Q4HP PRN IV 05/18/25 14:45 Enoxaparin Sodium 40 mg DAILY SC 05/19/25 10:00 Acetaminophen 650 mg Q6HP PRN PO 05/18/25 14:45 05/20/25 05:07 650 MG Morphine Sulfate 2 mg Q4HPRN PRN IV 05/18/25 14:45 Vancomycin HCl 350 ml @ 200 mls/hr Q12H IV 05/19/25 20:00 05/21/25 09:53 200 MLS/HR Laboratory Results Laboratory Tests 05/19/25 07:00 05/21/25 06:47 Urinalysis Test 05/18/25 15:00 Urine Color Yellow (Yellow) Urine Clarity Clear (Clear) Urine pH 6.0 (5.0-9.0) Urine Specific [place] 1.024 (1.001-1.035) Urine Protein Trace (Negative) H Urine Ketones Negative (Negative) Urine Blood Negative /uL (Negative) Urine Nitrite Negative (Negative) Urine Bilirubin Negative (Negative) Urine Urobilinogen 2 mg/dL (Negative) H Urine Leukocyte Esterase Negative /uL (Negative) Urine RBC 2 /hpf (0 - 3) Urine Microscopic WBC 3 /HPF (0-3) Urine Squamous Epithelial Cells Few /hpf (<5) Urine Calcium Oxalate Crystals Few (None Seen) Urine Bacteria None seen /hpf (None Seen) Urine Mucus Few (None Seen) Urine Glucose Normal mg/dL (Normal) Microbiology Microbiology Date/Time Source Procedure Growth Status 05/18/25 15:00 Face Gram Stain - Final Resulted 05/18/25 15:00 Face Wound Culture - Preliminary Resulted 05/18/25 08:15 Blood Blood Culture - Preliminary NO GROWTH AFTER 72 HOURS OF INCUBATION. Resulted Labs and/or images reviewed: Labs reviewed by me Assessment/Plan Assessment/Plan Intractable facial swelling likely due to cellulitis versus abscess Leukocytosis likely due to cellulitis Marijuana use Tobacco use Continuing current management. CT facial maxilla showed no acute abscess Continuing IV antibiotic vancomycin and Zosyn Continuing pain medication Advised to stop smoking and stop marijuana more than 15 minutes This medical document was created using an electronic medical record system with [employer] direct computerized dictation system. Although this document has been carefully reviewed, there may still be some phonetic and typographical errors. These areas are purely typographical due to imperfections of the software programs, and do not reflect any compromise in the patient's medical care. Plan discussed with: Patient Date of Service: May 21, 2025 Billing Provider: MARKY OLIVER MD Common Visit Codes: [id number] INP/OBS CARE(HIGH) MARKY OLIVER MD May 21, 2025 11:28
[2025-05-21] MEDS ORDERED: VANCOMYCIN PER PHARMACY 0 MG IV SCH (17:00)
[2025-05-21] MEDS: PIPERACILLIN-TAZOB 3.375GM 100 ML IV SCH (22:32)
[2025-05-22] VITALS (8 sets, daily range): BP systolic 106–142; BP diastolic 66–96; PULSE 62–79; RESP 18–19; TEMP 98.1–98.9; O2SAT 95–98
[2025-05-22 07:36] LABS: Hematocrit 38.3 % (41.0-53.0); Hemoglobin 13.1 g/dL (13.5-17.5); Mean Corpuscular Hemoglobin 29.1 pg (28.0-32.0); Mean Corpuscular Volume 85.4 fL (80.0-100.0); Nucleated Red Blood Cells % 0.3 %
--- NOTE | 2025-05-22 12:57 | DVHPN2 ---
Subjective The patient is seen and examined at bedside. No complaint today. Reviewed: Care Plan, H&P, Labs, Medications, Previous Orders, Radiology Changes from previous H/P or p: No Changes Skin: Lesions Objective Vitals Vital Signs Date Time Temp Pulse Resp B/P (MAP) Pulse Ox O2 Delivery O2 Flow Rate FiO2 05/22/25 09:00 98.9 74 18 142/96 (111) 98 98.9 05/22/25 08:00 Room Air* 0 21 Intake/Output Intake and Output 05/22/25 07:00 Intake Total 1966 ml Output Total 1100 ml Balance 866 ml Intake Oral 1416 ml IV Total 550 ml Output Urine Total 1100 ml # Voids 3 General Appearance: Alert, Oriented X3, Cooperative, No acute distress HEENT: PERRLA, EOMI, Mucous membr. moist/pink, Other (Facial swelling) Neck: Supple Lungs: Clear to auscultation, Normal air movement Cardiovascular: Regular rate, Normal S1, Normal S2, No murmurs, Gallops, Rubs Abdomen: Normal bowel sounds, Soft, No tenderness Neuro: Cranial nerves 3-12 NL Medications Current Medications Medications Dose Ordered Sig/Sukhwinder Route Start Time Stop Time Status Last Admin Dose Admin Acetaminophen/ Hydrocodone Bitart 1 tab Q4HP PRN PO 05/18/25 14:45 Ondansetron HCl 4 mg Q4HP PRN IV 05/18/25 14:45 Enoxaparin Sodium 40 mg DAILY SC 05/19/25 10:00 Acetaminophen 650 mg Q6HP PRN PO 05/18/25 14:45 05/21/25 20:35 650 MG Morphine Sulfate 2 mg Q4HPRN PRN IV 05/18/25 14:45 Vancomycin HCl 350 ml @ 200 mls/hr Q12H IV 05/19/25 20:00 05/22/25 07:54 200 MLS/HR Piperacillin Sod/ Tazobactam Sod 100 ml @ 25 mls/hr Q6H IV 05/21/25 22:00 05/22/25 11:22 25 MLS/HR Vancomycin HCl 0 ml @ 0 mls/hr UD IV 05/21/25 17:00 Laboratory Results Laboratory Tests 05/19/25 07:00 05/22/25 06:21 Urinalysis Test 05/18/25 15:00 Urine Color Yellow (Yellow) Urine Clarity Clear (Clear) Urine pH 6.0 (5.0-9.0) Urine Specific [place] 1.024 (1.001-1.035) Urine Protein Trace (Negative) H Urine Ketones Negative (Negative) Urine Blood Negative /uL (Negative) Urine Nitrite Negative (Negative) Urine Bilirubin Negative (Negative) Urine Urobilinogen 2 mg/dL (Negative) H Urine Leukocyte Esterase Negative /uL (Negative) Urine RBC 2 /hpf (0 - 3) Urine Microscopic WBC 3 /HPF (0-3) Urine Squamous Epithelial Cells Few /hpf (<5) Urine Calcium Oxalate Crystals Few (None Seen) Urine Bacteria None seen /hpf (None Seen) Urine Mucus Few (None Seen) Urine Glucose Normal mg/dL (Normal) Microbiology Microbiology Date/Time Source Procedure Growth Status 05/18/25 15:00 Face Gram Stain - Final Complete 05/18/25 15:00 Wound Culture - Final Methicillin Resistant S.aureus Complete 05/18/25 08:15 Blood Blood Culture - Preliminary NO GROWTH AFTER 72 HOURS OF INCUBATION. Resulted Labs and/or images reviewed: Labs reviewed by me Assessment/Plan Assessment/Plan Intractable facial swelling likely due to cellulitis versus abscess Leukocytosis likely due to cellulitis Marijuana use Tobacco use Continuing current management. CT facial maxilla showed no acute abscess Continuing IV antibiotic vancomycin and Zosyn Continuing pain medication Advised to stop smoking and stop marijuana more than 15 minutes This medical document was created using an electronic medical record system with [employer] direct computerized dictation system. Although this document has been carefully reviewed, there may still be some phonetic and typographical errors. These areas are purely typographical due to imperfections of the software programs, and do not reflect any compromise in the patient's medical care. Plan discussed with: Patient Date of Service: May 22, 2025 Billing Provider: MARKY OLIVER MD Common Visit Codes: [id number] INP/OBS CARE(HIGH) MARKY OLIVER MD May 22, 2025 12:57
[2025-05-23 01:00] VITALS: BP 110/69; PULSE 66; RESP 18; TEMP 98; O2SAT 97
[2025-05-23 05:00] VITALS: BP 116/84; PULSE 69; RESP 18; TEMP 97.9; O2SAT 97
[2025-05-23 08:00] VITALS: PULSE 78; O2SAT 96
[2025-05-23 09:00] VITALS: BP 121/82; PULSE 78; RESP 18; TEMP 97.6; O2SAT 96
[2025-05-23] MEDS ORDERED: AUG875T PO ×2 (11:38→12:57)
[2025-05-23] MEDS ORDERED: VANCOMYCIN 1.75GM/350ML 350 ML IV SCH (21:00)
== END 2025-05-23 12:50 | disposition home or self-care (01) | DRG 383 ==
LOC: ER 07:26 → OVERFLOW 14:35 → WEST WING 19:02
PROVIDERS: ADMIT Internal Medicine; ATTEND Internal Medicine
DX: L03.211 Cellulitis of face (principal); F12.90 Cannabis use, unspecified, uncomplicated; L02.01 Cutaneous abscess of face; F17.210 Nicotine dependence, cigarettes, uncomplicated; Z59.00 Homelessness unspecified; Z71.6 Tobacco abuse counseling
CPT/HCPCS: 36415; 70486; 80048; 80053; 80202; 80307; 81001; 82565; 83605; 85025; 87040; 87081; 96365; 96375; G0378; J1885; J2543

== ENCOUNTER 2025-06-20 21:57 | Emergency (ER) | payer MEDICAID ==
[~2025-06-20] VITALS: Ht 190.5 cm; Wt 72.8 kg
[~2025-06-20 21:57] MED LIST changes: -BACDST PO; -CLIN1CAP70 PO; -MUPI2CRE17 EX; -PRED20TA2 PO
[2025-06-21 00:03] VITALS: BP 133/88; PULSE 102; RESP 16; TEMP 98.5; O2SAT 97
[2025-06-21] MEDS ORDERED: CLIN1CAP70 PO (00:04)
--- NOTE | 2025-06-21 00:04 | ED.PDOC ---
History of Present Illness(SKN HPI Comments 39 year old male presents to ER for wound check. Patient states he's been experiencing pain/swelling/redness to right side of face x 4 days. States he was seen and evaluated for his symptoms "2 weeks ago" at [facility] and prescribed oral antibiotics but never took them as prescribed because he "lost them". Patient presents to ER ambulatory on arrival, afebrile, with mild swelling/erythema noted to right lower chin without any fluctuance/drainage noted. Denies fever, n/v, headache, body aches, chills, night sweats or any further symptoms/complaints Chief Complaint: Face pain Time Seen by MD: 22:29 Primary Care Provider: UNKNOWN History of Present Illness: Nurses Notes, Medications, Allergies Allergies: Coded Allergies: NO KNOWN ALLERGIES (Unverified , 03/06/21) Home Meds Active Scripts Clindamycin Hcl (Clindamycin Hcl) 300 Mg Cap, 300 MG PO QID for 10 Days, #40 CAP 0 Refills Prov:ANNABELLE BOYCE 06/21/25 Amoxicillin & Pot Clavulanate (AUGMENTIN TABLET) 875 Mg Tb, 875 MG PO BID, #28 TAB Prov:MARKY OLIVER MD 05/23/25 Amoxicillin & Pot Clavulanate (AUGMENTIN TABLET) 875 Mg Tb, 875 MG PO BID PRN for 10 Days, #28 TAB Prov:MARKY OLIVER MD 05/23/25 Ibuprofen (Ibuprofen) 800 Mg Tab, 1 TAB PO TID PRN, #30 TAB 0 Refills Prov:ANNABELLE BOYCE 05/10/25 Mupirocin (Pseudomonas Fluores (Mupirocin) 2 % Oin, 2 % EX TID for 5 Days, #1 O IN 1 Refill Prov:ANNABELLE BOYCE 05/10/25 Ibuprofen Micronized (Ibuprofen) 600 Mg Tab, 600 MG PO Q6HPRN PRN for 5 Days, #20 TAB Prov:GIOVANY CASTANON 05/08/24 Information Source: Patient Mode of Arrival: Ambulatory Past Medical History PAST MEDICAL HISTORY: Denies Surgical History: Denies all surgeries Family History Family History: Unknown Social History Smoker: Cigarettes, Less Than 1 Pack/Day Alcohol: Denies ETOH Use Drugs: Methamphetamine Lives In: Homeless Constitutional: denies: chills, diaphoresis, fatigue, fever, malaise, sweats, weakness, others EENTM: denies: blurred vision, double vision, ear bleeding, ear discharge, ear drainage, ear pain, ear ringing, eye pain, eye redness, hearing loss, mouth p ain, mouth swelling, nasal discharge, nose bleeding, nose congestion, nose pain, photophobia, tearing, throat pain, throat swelling, voice changes, others Respiratory: denies: cough, hemoptysis, orthopnea, SOB at rest, shortness of br eath, SOB with excertion, stridor, wheezing, others Cardiovascular: denies: chest pain, dizzy spells, diaphoresis, Dyspnea on exertion, edema, irregular heart beat, left arm pain, lightheadedness, palpitations, PND, syncope, others Gastrointestinal: denies: abdomen distended, abdominal pain, blood streaked bowels, constipated, diarrhea, dysphagia, difficulty swallowing, hematemesis, melena, nausea, poor appetite, poor fluid intake, rectal bleeding, rectal pain, vomiting, others Genitourinary: denies: burning, dysuria, flank pain, frequency, hematuria, incontinence, penile discharge, penile sore, pain, testicle pain, testicle swelling, urgency, others Neurological: denies: dizziness, fainting, headache, left sided numbness, left sided weakness, numbness, paresthesia, pre-existing deficit, right sided numbness, right sided weakness, seizure, speech problems, tingling, tremors, weakness, others Musculoskeletal: denies: back pain, gout, joint pain, joint swelling, muscle pain, muscle stiffness, neck pain, others Integumetry: reports: others (As stated in HPI) Allergic/Immunocompromised: denies: Difficulty Healing, Frequent Infections, Hives, Itching, others Hematologic/Lymphatic: denies: anemia, blood clots, easy bleeding, easy bruising, swollen glands, others Endocrine: denies: excessive hunger, excessive sweating, excessive thirst, excessive urination, flushing, intolerance to cold, intolerance to heat, unexplained weight gain, unexplained weight loss, others Psychiatric: denies: anxiety, bipolar disorder, depression, hopeless, panic disorder, schizophrenia, sleepless, suicidal, others Physical Exam General Appearance: No Apparent Distress HEENT: Normal ENT Inspection, PERRL/EOMI, Pharynx Normal, TMs Normal, Other (Mild swelling/erythema noted to right lower chin without any fluctuance/drainage noted) Neck: Full Range of Motion, Non-Tender, Normal Respiratory: Chest Non-Tender, Lungs Clear, No Accessory Muscle Use, No Respiratory Distress, Normal Breath Sounds Cardiovascular: No Murmur, No Gallop, Regular Rate/Rhythm Breast Exam: Deferred Gastrointestinal: NOT DONE Genitalia: Deferred Pelvic: Deferred Rectal: Deferred Extremities: Normal capillary refill, Normal range of motion 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 Was a procedure done?: No Sedation Sedation?: No Differential Diagnosis (INTG) Differential Diagnosis: Abrasion Differential Diagnosis: Abscess, Contact Dermatitis, Impetigo X-Ray, Labs, Meds, VS Vital Signs Date Time Temp Pulse Resp B/P (MAP) Pulse Ox O2 Delivery O2 Flow Rate FiO2 06/21/25 00:03 98.5 102 16 133/88 (103) 97 98.5 06/20/25 22:01 98.5 102 16 133/88 97 98.5 Clindamycin 300 mg p.o. 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 and take the medications below as prescribed Advised to follow up with PCP and housemaid in 1-2 days Patient verbalized understanding and agreeable with current plan of care Advised to return to ER immediately if symptoms worsen Time of 1ST Reevaluation: 23:40 Reevaluation 1ST: N/A Patient Education/Counseling: Diagnosis, Treatment, Prognosis, Need For Follow Up Family Education/Counseling: No Family Present SEPSIS Sepsis Screen Date sepsis recognized/suspect: Jun 20, 2025 Time Sepsis recognized/suspect: 2202 Recent Procedure: No On Antibiotic Therapy: No Respiratory Rate >20: No Heart Rate >90: No Temp<36 C (96.8 F) or >38.3 C: No SBP <90 or MAP <65 mmHG: No New Acute Mental Status Change: No Is the patient on CPAP, BIPAP,: No Vital Signs Date Time Temp Pulse Resp B/P (MAP) Pulse Ox O2 Delivery O2 Flow Rate FiO2 06/21/25 00:03 98.5 102 16 133/88 (103) 97 98.5 06/20/25 22:01 98.5 102 16 133/88 97 98.5 Departure 1 Departure Time of Disposition: 00:02 Impression: Primary Impression: Facial cellulitis Additional Impression: Methamphetamine abuse Disposition: 01 HOME / SELF CARE / HOMELESS Condition: Stable e-Prescriptions Clindamycin Hcl (Clindamycin Hcl) 300 Mg Cap 300 MG PO QID for 10 Days, #40 CAP 0 Refills Prov: ANNABELLE BOYCE 06/21/25 Discharged With: Self Critical Care Note Critical Care Time?: No Stability Stability form required: No Heart Score Heart Score: Heart Score Response (Comments) Value History N/A 0 EKG N/A 0 Age N/A 0 Risk Factors N/A 0 Troponin N/A 0 Total 0 ANNABELLE BOYCE Jun 21, 2025 00:04
[2025-06-21] MEDS: CLINDAMYCIN HCL 150 MG CAP PO ONE (00:12)
== END 2025-06-21 00:13 | disposition home or self-care (01) ==
LOC: ER 21:57
DX: L03.211 Cellulitis of face (principal); F15.10 Other stimulant abuse, uncomplicated; F17.210 Nicotine dependence, cigarettes, uncomplicated; Z79.899 Other long term (current) drug therapy; Z59.00 Homelessness unspecified

== ENCOUNTER 2025-06-28 00:50 | Emergency (ER) | payer MEDICAID ==
[~2025-06-28] VITALS: Ht 190.5 cm; Wt 73.0 kg
[~2025-06-28 00:50] MED LIST changes: +CLIN1CAP70 PO
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
[2025-06-28 01:46] LABS: Hematocrit 35.5 % (41.0-53.0); Hemoglobin 11.8 g/dL (13.5-17.5); Mean Corpuscular Hemoglobin 28.5 pg (28.0-32.0); Mean Corpuscular Volume 85.5 fL (80.0-100.0); Nucleated Red Blood Cells % 0.1 %
[2025-06-28 01:54] LABS: Alanine Aminotransferase 13 U/L (7-40); Albumin 4.1 g/dL (3.2-4.8); Alkaline Phosphatase 51 U/L (46-116); Anion Gap 8 (5-15); BUN/Creatinine Ratio 18.7 (10.0-20.0); Blood Urea Nitrogen 17 mg/dL (9-23); Calcium 8.8 mg/dL (8.7-10.4); Carbon Dioxide 29 mmol/L (20-31); Chloride 105 mmol/L (98-107); Glucose 87 mg/dL (74-106); Potassium 4.5 mmol/L (3.5-5.1); Sodium 142 mmol/L (136-145); Total Protein 6.5 g/dL (5.7-8.2)
[2025-06-28 02:07] LABS: Bilirubin, Total 0.3 mg/dL (0.2-1.0)
--- NOTE | 2025-06-28 02:10 | DVH ---
CHEST RADIOGRAPH Indication: SOB Technique: 1 view Comparison: XY CHEST PORTABLE on DOS: 05/04/24 FINDINGS: Lines and Tubes: None. Lungs/Pleura: No focal consolidation, pleural effusion or pneumothorax. Left perihilar calcification. Cardiomediastinum: Unremarkable. Other: No acute osseous abnormality. IMPRESSION: 1. No acute cardiopulmonary abnormality.
[2025-06-28 05:20] LABS: Cannabinoid Screen, Urine Pos (NEGATIVE)
[2025-06-28 05:31] LABS: Urine Protein, UAD TRACE (Negative)
[2025-06-28 05:36] LABS: Amphetamine Screen, Urine Pos (NEGATIVE); Barbiturate Scree,Urine Neg (NEGATIVE); Benzodiazephine Screen, Urine Neg (NEGATIVE); Cocaine Screen, Urine Neg (NEGATIVE); Opiate Scree,Urine Neg (NEGATIVE); Phencyclidine Screen, Urine Neg (NEGATIVE)
[2025-06-28 08:21] VITALS: BP 142/93; PULSE 59; RESP 16; TEMP 97.6; O2SAT 100
== END 2025-06-28 16:42 | disposition left against medical advice (07) ==
LOC: EDBD 00:50 → ER 00:50
DX: F15.20 Other stimulant dependence, uncomplicated (principal); F22 Delusional disorders; F41.9 Anxiety disorder, unspecified; F17.210 Nicotine dependence, cigarettes, uncomplicated; Z79.899 Other long term (current) drug therapy
CPT/HCPCS: 36415; 71045; 80053; 80307; 80320; 81003; 83605; 83880; 84484; 85025

== ENCOUNTER 2025-07-11 19:16 | Emergency (ER) | payer MEDICAID ==
[~2025-07-11] VITALS: Ht 190.5 cm; Wt 76.0 kg
--- NOTE | 2025-07-11 20:55 | ECG ---
[facility] Test Date: 2025-07-11 Test Time: 19:29:56 Pat Name: OLINDA GHOSH Department: ED Room: Gender: M Supervisor Heading: ke : 1985 Requested By: EMERGENCY EMERGENCY Order Number: [id number] Reading MD: Measurements Intervals [place] Rate: 75 P: 70 NH: 143 QRS: 76 QRSD: 118 T: 53 QT: 387 QTc: 433 Interpretive Statements Sinus rhythm Nonspecific intraventricular conduction delay Please click the below link to view image of tracing.
[2025-07-11 22:26] VITALS: BP 130/83; PULSE 85; RESP 16; TEMP 98.3; O2SAT 99
[2025-07-11 23:10] LABS: Hematocrit 36.8 % (41.0-53.0); Hemoglobin 12.1 g/dL (13.5-17.5); Mean Corpuscular Hemoglobin 28.0 pg (28.0-32.0); Mean Corpuscular Volume 85.0 fL (80.0-100.0); Nucleated Red Blood Cells % 0.0 %
[2025-07-11 23:18] LABS: Chloride 103 mmol/L (98-107); Potassium 3.9 mmol/L (3.5-5.1); Sodium 138 mmol/L (136-145)
[2025-07-11 23:19] LABS: Anion Gap 8 (5-15); Carbon Dioxide 27 mmol/L (20-31)
[2025-07-11 23:20] LABS: Calcium 8.8 mg/dL (8.7-10.4)
[2025-07-11 23:24] LABS: BUN/Creatinine Ratio 20.9 (10.0-20.0); Blood Urea Nitrogen 19 mg/dL (9-23); Glucose 99 mg/dL (74-106)
--- NOTE | 2025-07-11 23:43 | ED.PDOC ---
HPI (NEURO) HPI Comments HPI: Poor Historian. 39-year-old male presents to emergency department for evaluation dizziness. He said this happened after he smoked some methamphetamine and marijuana earlier today. Denies use of any other drugs but he does not know of the methamphetamine was mixed with the anything else. He states feeling dizzy and he feels like he is going to pass out however he was seen ambulating independently in the ED. Patient states he has not eaten anything all day today. He is homeless. Does not take any medication for anything. Patient was given food and juice. Past Medical History: Homelessness, methamphetamine abuse, marijuana abuse Past Surgical History: Denies any Denies any allergies REVIEW OF SYSTEMS: CONSTITUTIONAL: Denies acute: fever, diaphoresis, chills, HEAD: Denies acute: headache, photophobia Eyes: Denies acute: Double vision, vision loss, eye pain, eye discharge. EARS: Denies acute: tinnitus, hearing loss, ear discharge, ear pain, THROAT: Denies acute: sore throat, swelling, difficulty swallowing , pain with swallowing, change in voice. NECK: Denies acute: neck pain, neck swelling, stiff neck. HEART: Denies acute : chest pain, palpitations, LUNGS: Denies acute: SOB, wheezing, cough, hemoptysis ABDOMEN: Denies acute: abdominal pain, Nausea, Vomiting, diarrhea, melena , hematemesis, hematochezia SKIN: Denies acute: rash, redness, lesions, itchiness. EXTREMITIES: Denies acute: calf pain, numbness, tingling, weakness, denies pain in extremity. Denies acute: Low back pain. Neuro: Denies acute: focal neurological deficit, motor or sensory focal neurological deficit, tremors, seizure like activity, confusion, change in mental status, loss of bowel or bladder function, cauda equina like symptoms. : Denies acute: dysuria, hematuria, flank pain, increase in urinary frequency. PSYCH: Denies acute: hallucination, suicidal ideation, homicidal ideation. PHYSICAL EXAM: General: ---mild-----acute distress, awake and alert. Head: normocephalic, atraumatic. Neck: supple, trachea is midline, no swelling. Throat: Normal phonation. Eyes:, no erythema, no purulent discharge, no proptosis, no icterus. Heart: regular rate, regular rhythm, no significant murmur appreciated. Lungs: no apparent respiratory distress, Able to speak in full sentences. No wheezing, no rhonchi, no crackles. No stridors Clear to auscultation bilaterally. Abdomen: non tender to palpation, non distended, soft, no guarding, no rebound, + bowel sounds. Neuro: Awake, Alert, oriented to name, self, situation, follows commands GCS=15. Speech is normal. Skin: no petechia, no purpura, no cyanosis, non-pale, not jaundice. Lower extremities: --no - Pitting edema no deformity, no focal swelling, no calf TTP. Makes eye contact. moves all four extremities. Face: no apparent facial droop. Ambulating in the ED independently. ED COURSE: DISCLAIMER: This medical document was created using an electronic medical record system with voice recognition software and computerized dictation system. Although this document has been carefully reviewed, there might still be some phonetic and typographical errors. Occasional wrong-word or "sound-alike" substitutions may have occurred due to the inherent limitations of voice recognition software. These areas are purely typographical due to imperfections of the software programs and do not reflect any compromise in the patient's medical care. Please read the chart carefully and recognize, using context, where these substitutions have occurred. Chief Complaint: Dizziness Time Seen by MD: 22:26 Primary Care Provider: UNKNOWN Reviewed Notes: Allergies Information Source: Patient Mode of Arrival: Ambulatory Past Medical History PAST MEDICAL HISTORY: Denies Surgical History: Denies all surgeries Family History Family History: Unknown Social History Smoker: Cigarettes, Less Than 1 Pack/Day Alcohol: Denies ETOH Use Drugs: Methamphetamine Lives In: Homeless Was a procedure done? Was a procedure done?: No Differential Diagnosis (SZ) Seizure: N/A General Weakness: Anemia, CVA, Dehydration, Dysrhythmia, Electrolyte imbalance, Encephalopathy, Guillain-[place], Hypoglycemia, Hypotension, Hypovolemia, Labyrinthitis, Meniere's disease, Myasthenia gravis, Myocardial infarction, Pulmonary embolus, Renal failure, Repiratory failure, TIA, VBI, Vertigo: central, Vertigo: peripheral, Vestibular neuronitis X-Ray, Labs, Meds, VS Vital Signs Date Time Temp Pulse Resp B/P (MAP) Pulse Ox O2 Delivery O2 Flow Rate FiO2 07/11/25 22:26 98.3 85 16 130/83 (99) 99 98.3 07/11/25 19:29 75 07/11/25 19:18 98.0 92 20 126/83 99 98.0 Lab Test 07/11/25 23:35 07/11/25 23:30 07/11/25 22:53 07/11/25 19:26 Range/Units Troponin I High Sensitivity 3 L < 3 L </=54 ng/L Urine Opiates Screen Neg NEGATIVE Urine Fentanyl Screen Neg NEGATIVE Urine Barbiturates Screen Neg NEGATIVE Urine Phencyclidine Screen Neg NEGATIVE Urine Amphetamines Screen Pos NEGATIVE Urine Benzodiazepines Screen Neg NEGATIVE Urine Cocaine Screen Neg NEGATIVE Urine Cannabinoids Screen Pos NEGATIVE White Blood Count 6.3 4.4-10.8 10^3/uL Red Blood Count 4.33 L 4.5-5.90 10^6/uL Hemoglobin 12.1 L 13.5-17.5 g/dL Hematocrit 36.8 L 41.0-53.0 % Mean Corpuscular Volume 85.0 80.0-100.0 fL Mean Corpuscular Hemoglobin 28.0 28.0-32.0 pg Mean Corpuscular Hemoglobin Concent 32.9 32.0-36.0 g/dL Red Cell Distribution Width 14.8 H 11.8-14.3 % Platelet Count 301 140-450 10^3/uL Mean Platelet Volume 8.3 6.9-10.8 fL Neutrophils (%) (Auto) 55.1 37.0-80.0 % Lymphocytes (%) (Auto) 32.0 10.0-50.0 % Monocytes (%) (Auto) 7.9 0.0-12.0 % Eosinophils (%) (Auto) 3.9 0.0-7.0 % Basophils (%) (Auto) 1.1 0.0-2.0 % Neutrophils # (Auto) 3.4 1.6-8.6 10 ^3/uL Lymphocytes # (Auto) 2.0 0.4-5.4 10 ^3/uL Monocytes # (Auto) 0.5 0-1.3 10 ^3/uL Eosinophils # (Auto) 0.2 0-0.8 10 ^3/uL Basophils # (Auto) 0.1 0-0.2 10 ^3/uL Nucleated Red Blood Cells 0.0 % Sodium Level 138 136-145 mmol/L Potassium Level 3.9 3.5-5.1 mmol/L Chloride Level 103 98-107 mmol/L Carbon Dioxide Level 27 20-31 mmol/L Anion Gap 8 5-15 Blood Urea Nitrogen 19 9-23 mg/dL Creatinine 0.91 0.700-1.30 mg/dL Glomerular Filtration Rate Calc 109 >90 mL/min BUN/Creatinine Ratio 20.9 H 10.0-20.0 Serum Glucose 99 74-106 mg/dL Calcium Level 8.8 8.7-10.4 mg/dL B-Type Natriuretic Peptide 8.76 0-100 pg/mL POC Glucose 154 H 70-106 mg/dl Time of 1ST Reevaluation: 17:08 Reevaluation 1ST: Patient Education/Counseling: Other Family Education/Counseling: Other Comments Patient was given food to eat and drink. Patient eloped. Departure 1 Departure Time of Disposition: 00:17 Impression: Primary Impression: Methamphetamine abuse Additional Impressions: Dizziness Homelessness Disposition: LEFT AWOL/ELOPED Condition: Other Additional Instructions: Patient eloped Discharged With: Other Critical Care Note Critical Care Time?: No Heart Score Heart Score: Heart Score Response (Comments) Value History N/A 0 EKG N/A 0 Age N/A 0 Risk Factors N/A 0 Troponin N/A 0 Total 0 АЛЕКСАНДР OROZOC DO Jul 11, 2025 23:43
[2025-07-12 00:09] LABS: Amphetamine Screen, Urine Pos (NEGATIVE); Barbiturate Scree,Urine Neg (NEGATIVE); Benzodiazephine Screen, Urine Neg (NEGATIVE); Cocaine Screen, Urine Neg (NEGATIVE); Opiate Scree,Urine Neg (NEGATIVE)
[2025-07-12 00:10] LABS: Cannabinoid Screen, Urine Pos (NEGATIVE); Phencyclidine Screen, Urine Neg (NEGATIVE)
[2025-07-12] MEDS ORDERED: SODIUM CHLORIDE 0.9% 1,000 ML IV ONE (00:30)
== END 2025-07-12 01:56 | disposition left against medical advice (07) ==
LOC: ER 19:16
DX: R42 Dizziness and giddiness (principal); F15.10 Other stimulant abuse, uncomplicated; F17.210 Nicotine dependence, cigarettes, uncomplicated; Z98.890 Other specified postprocedural states
CPT/HCPCS: 36415; 80048; 80307; 82947; 82962; 83880; 84484; 85025; 93005

== ENCOUNTER 2025-07-17 00:23 | Emergency (ER) | payer MEDICAID ==
[~2025-07-17] VITALS: Ht 190.5 cm; Wt 72.5 kg
[2025-07-17 00:25] VITALS: BP 131/92; RESP 16; TEMP 97.8; O2SAT 98
--- NOTE | 2025-07-17 01:35 | ED.PDOC ---
History of Present Illness HPI Comments 39-year-old male is brought in by friends for chief complaint of dizziness after smoking methamphetamine, earlier, today. Patient also complained of bilateral foot pain. Chief Complaint: Dizziness Time Seen by MD: 00:34 Primary Care Provider: UNKNOWN Reviewed Notes: Nurses Notes, Medications, Allergies Allergies: Coded Allergies: NO KNOWN ALLERGIES (Unverified , 03/06/21) Home Meds Active Scripts Clindamycin Hcl (Clindamycin Hcl) 300 Mg Cap, 300 MG PO QID for 10 Days, #40 CAP 0 Refills Prov:ANNABELLE BOYCE 06/21/25 Amoxicillin & Pot Clavulanate (AUGMENTIN TABLET) 875 Mg Tb, 875 MG PO BID, #28 TAB Prov:MARKY OLIVER MD 05/23/25 Amoxicillin & Pot Clavulanate (AUGMENTIN TABLET) 875 Mg Tb, 875 MG PO BID PRN for 10 Days, #28 TAB Prov:MARKY OLIVER MD 05/23/25 Ibuprofen (Ibuprofen) 800 Mg Tab, 1 TAB PO TID PRN, #30 TAB 0 Refills Prov:ANNABELLE BOYCE 05/10/25 Mupirocin (Pseudomonas Fluores (Mupirocin) 2 % Oin, 2 % EX TID for 5 Days, #1 OIN 1 Refill Prov:ANNABELLE BOYCE 05/10/25 Ibuprofen Micronized (Ibuprofen) 600 Mg Tab, 600 MG PO Q6HPRN PRN for 5 Days, #20 TAB Prov:GIOVANY CASTANONP 05/08/24 Information Source: Patient Mode of Arrival: Ambulatory Severity: Moderate Timing: Hours Duration: Since onset Prehospital treatment: None Past Medical History PAST MEDICAL HISTORY: Denies Surgical History: Denies all surgeries Family History Family History: Unknown Social History Smoker: Cigarettes, Less Than 1 Pack/Day Alcohol: Denies ETOH Use Drugs: Methamphetamine Lives In: Homeless All Other Systems: Reviewed and Negative (As per HPI) Physical Exam General Appearance: No Apparent Distress, Normal HEENT: Normal ENT Inspection, Pharynx Normal, TMs Normal Neck: Full Range of Motion, Non-Tender Respiratory: Lungs Clear, No Respiratory Distress, Normal Breath Sounds Cardiovascular: No Edema, No JVD, No Murmur, No Gallop, Normal Peripheral Pulses, Regular Rate/Rhythm Breast Exam: Deferred Gastrointestinal: No Organomegaly, Non Tender, No Pulsatile Mass, Normal Bowel Sounds, Soft Genitalia: Deferred Pelvic: Deferred Rectal: Deferred Extremities: Normal capillary refill, Normal range of motion, Non-tender, No pedal edema Musculoskeletal : Apperance: Normal Neurologic: Alert, No Motor Deficits, Normal Affect, Normal Mood, No Sensory Deficits Cerebellar Function: Normal Reflexes: NOT DONE Skin: Dry, Normal Color, Warm Lymphatic: No Adenopathy Was a procedure done? Was a procedure done?: No Differential Dx Considerations may include: vertigo, electrolyte imbalance, dehydration, encephalopathy, among others X-Ray, Labs, Meds, VS Vital Signs Date Time Temp Pulse Resp B/P (MAP) Pulse Ox O2 Delivery O2 Flow Rate FiO2 07/17/25 02:04 54 07/17/25 00:25 97.8 90 16 131/92 98 97.8 X-Ray, Labs, Meds, VS Comment Vital signs stable. EKG shows normal sinus no ectopy no tachycardia no ST- elevation. Advised patient to rest increase p.o. fluids with electrolytes. Advised to avoid methamphetamine use. Literature provided for rehab programs in the area in homeless shelters. Advised on ER return precautions patient indicates understanding and agrees with discharge plan of care. Time of 1ST Reevaluation: 00:45 Reevaluation 1ST: Unchanged Time of 2ND Reevaluation: 02:00 Reevaluation 2ND: Improved Patient Education/Counseling: Diagnosis, Treatment, Need For Follow Up Family Education/Counseling: No Family Present SEPSIS Sepsis Screen Date sepsis recognized/suspect: Jul 17, 2025 Time Sepsis recognized/suspect: 0028 Recent Procedure: No On Antibiotic Therapy: No Respiratory Rate >20: No Heart Rate >90: No Temp<36 C (96.8 F) or >38.3 C: No SBP <90 or MAP <65 mmHG: No New Acute Mental Status Change: No Is the patient on CPAP, BIPAP,: No Physician Orders Electrocardigram (07/17/25 00:34) Vital Signs Date Time Temp Pulse Resp B/P (MAP) Pulse Ox O2 Delivery O2 Flow Rate FiO2 07/17/25 02:04 54 07/17/25 00:25 97.8 90 16 131/92 98 97.8 Departure 1 Departure Time of Disposition: 02:00 Impression: Primary Impression: Methamphetamine abuse Disposition: 01 HOME / SELF CARE / HOMELESS Condition: Stable Discharged With: Self Critical Care Note Critical Care Time?: No Stability Stability form required: No Heart Score Heart Score: Heart Score Response (Comments) Value History N/A 0 EKG N/A 0 Age N/A 0 Risk Factors N/A 0 Troponin N/A 0 Total 0 I personally scribed for ER ([email or web address]) on 07/17/25 at 01:34. Electronically submitted by Wilbert Velazco ([email or web address]). ER Jul 17, 2025 01:34 TERRY BURNS Jul 17, 2025 02:00
[2025-07-17 02:04] VITALS: PULSE 54
--- NOTE | 2025-07-17 06:53 | ECG ---
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
== END 2025-07-17 02:26 | disposition home or self-care (01) ==
LOC: ER 00:23
DX: F15.10 Other stimulant abuse, uncomplicated (principal); F17.210 Nicotine dependence, cigarettes, uncomplicated; Z79.899 Other long term (current) drug therapy; Z59.00 Homelessness unspecified
CPT/HCPCS: 93005

== ENCOUNTER 2025-08-11 03:16 | Emergency (ER) | payer MEDICAID ==
[~2025-08-11] VITALS: Ht 190.5 cm; Wt 76.7 kg
[2025-08-11 03:25] VITALS: BP 143/77; PULSE 101; RESP 20; TEMP 96.9; O2SAT 96
== END 2025-08-11 07:57 | disposition left against medical advice (07) ==
LOC: ER 03:16
DX: M79.672 Pain in left foot (principal); M79.671 Pain in right foot; Z53.21 Procedure and treatment not carried out due to patient leaving prior to being seen by health care provider

== ENCOUNTER 2025-08-12 02:50 | Emergency (ER) | payer MEDICAID ==
[~2025-08-12] VITALS: Ht 190.5 cm; Wt 76.7 kg
[2025-08-12 03:36] LABS: Hematocrit 35.9 % (41.0-53.0); Hemoglobin 12.2 g/dL (13.5-17.5); Mean Corpuscular Hemoglobin 29.0 pg (28.0-32.0); Mean Corpuscular Volume 85.3 fL (80.0-100.0); Nucleated Red Blood Cells % 0.1 %
[2025-08-12 03:56] LABS: Alanine Aminotransferase 15 U/L (7-40); Albumin 4.1 g/dL (3.2-4.8); Alkaline Phosphatase 55 U/L (46-116); Anion Gap 7 (5-15); BUN/Creatinine Ratio 16.2 (10.0-20.0); Blood Urea Nitrogen 16 mg/dL (9-23); Calcium 9.0 mg/dL (8.7-10.4); Carbon Dioxide 27 mmol/L (20-31); Chloride 105 mmol/L (98-107); Glucose 106 mg/dL (74-106); Potassium 4.1 mmol/L (3.5-5.1); Sodium 139 mmol/L (136-145); Total Protein 6.5 g/dL (5.7-8.2)
[2025-08-12 04:02] LABS: Bilirubin, Total 0.3 mg/dL (0.2-1.0)
[2025-08-12 05:07] LABS: Urine Protein, UAD Negative (Negative)
[2025-08-12 05:16] LABS: Cannabinoid Screen, Urine Pos (NEGATIVE)
--- NOTE | 2025-08-12 05:21 | ED.PDOC ---
Psychiatric HPI Comments 40-year-old male past medical history of cellulitis of face, polysubstance abuse (cannabis, nicotine, methamphetamine) has come to the ED for detoxification. Patient reports that he is homeless and was told by a correction/facility that they would not be able to accommodate him because of his meth use, and that he would have to be clean from methamphetamine before he could join, which has prompted him to come to the ER for a cleanse. Patient on initial assessment is A&O x4 but seems high on drugs, has no chief complaints and seems relaxed, almost somnolent. On inquiry, patient states that he took methamphetamine today as well. He denies any chest pain, abdominal pain, nausea, vomiting, shortness of breath or any other symptoms. We are assessing him further for any medical conditions. Attestation note: Dr. Cross: I was the supervising attending for this ED encounter. Please see the resident's notes. I was available for questions and consultations. Differential diagnosis: MDM: MDM: patient presented with the above HPI.---methamphetamine abuse detox---workup was initiated. patient was found with the above mentioned diagnosis. the following medications were ordered: please refer to order lists of meds and tests obtained by myself Dr. Cross. Patient ED course and VS have been stabilized. Patient has been reassessed in the ED and remained in a stable condition. Pertinent incidental findings were discussed with the patient and/or family. Patient/family voices understanding and is agreeable with plan. Patient has been observed in the ED adequate length of time to insure improvement/stability. Escalation of care considered: Consideration of escalation to observation or admission Patient will be DISCHARGED home after social service consult. All the reports of any imaging studies that were ordered by myself were reviewed by myself. Chief Complaint: Detox Clearance Time Seen by MD: 04:51 Primary Care Provider: UNKNOWN Reviewed Notes: Allergies Information Source: Patient Mode of Arrival: Ambulatory Past Medical History PAST MEDICAL HISTORY: Denies Surgical History: Denies all surgeries Family History Family History: Unknown Social History Smoker: Cigarettes, Less Than 1 Pack/Day Alcohol: Denies ETOH Use Drugs: Marijuana, Methamphetamine Lives In: Homeless Constitutional: denies: chills, diaphoresis, fatigue, fever, malaise, sweats, weakness, others EENTM: denies: blurred vision, double vision, ear bleeding, ear discharge, ear drainage, ear pain, ear ringing, eye pain, eye redness, hearing loss, mouth pain, mouth swelling, nasal discharge, nose bleeding, nose congestion, nose pain, photophobia, tearing, throat pain, throat swelling, voice changes, others Respiratory: denies: cough, hemoptysis, orthopnea, SOB at rest, shortness of breath, SOB with excertion, stridor, wheezing, others Cardiovascular: denies: chest pain, dizzy spells, diaphoresis, Dyspnea on exertion, edema, irregular heart beat, left arm pain, lightheadedness, palpitations, PND, syncope, others Gastrointestinal: denies: abdomen distended, abdominal pain, blood streaked bowels, constipated, diarrhea, dysphagia, difficulty swallowing, hematemesis, melena, nausea, poor appetite, poor fluid intake, rectal bleeding, rectal pain, vomiting, others Genitourinary: denies: burning, dysuria, flank pain, frequency, hematuria, incontinence, penile discharge, penile sore, pain, testicle pain, testicle swelling, urgency, others Neurological: denies: dizziness, fainting, headache, left sided numbness, left sided weakness, numbness, paresthesia, pre-existing deficit, right sided numbness, right sided weakness, seizure, speech problems, tingling, tremors, weakness, others Musculoskeletal: denies: back pain, gout, joint pain, joint swelling, muscle pain, muscle stiffness, neck pain, others Integumetry: denies: bruises, change in color, change in hair/nails, dryness, laceration, lesions, lumps, rash, wounds, others Allergic/Immunocompromised: denies: Difficulty Healing, Frequent Infections, Hives, Itching, others Hematologic/Lymphatic: denies: anemia, blood clots, easy bleeding, easy bruising, swollen glands, others Endocrine: denies: excessive hunger, excessive sweating, excessive thirst, excessive urination, flushing, intolerance to cold, intolerance to heat, unexplained weight gain, unexplained weight loss, others Psychiatric: denies: anxiety, bipolar disorder, depression, hopeless, panic disorder, schizophrenia, sleepless, suicidal, others Physical Exam General Appearance: Normal, Other (Relaxed, slightly somnolent) HEENT: Other (Patient does not maintain eye contact, is somnolent, erythema /sunburnt appearance of face) Neck: Other (No JVD, no accessory muscles of respiration, no enlarged lymph nodes palpated) Respiratory: No Accessory Muscle Use, Other (No stridor, wheezing, rhonchi noted) Cardiovascular: No JVD, No Murmur, Regular Rate/Rhythm, Other Breast Exam: Deferred Gastrointestinal: Other (Absence of guarding, no rebound tenderness, no masses felt) Genitalia: Deferred Pelvic: Deferred Rectal: Deferred Extremities: No pedal edema, Other (Presence of slight skin abrasion on right plantar surface of forefoot, slightly erythematous) Neurologic: Other (Patient is slightly disoriented, absence of facial droop) Cerebellar Function: Unable to Test Reflexes: Normal Skin: Normal Color, Other (Sun burned appearance, erythema of face) Lymphatic: Other (No cervical lymphadenopathy palpated) Was a procedure done? Was a procedure done?: No Psych Differential Dx Psych. Differential Dx: Other (Methamphetamine intoxication, cannabis abuse) Intoxication Differential Dx: Alcohol Withdraw Syndrome, Delerium Tremens, Hallucinations, Seizures, Anticholinergic Poisoning, CVA, Dehydration, Depression, Electrolyte Imbalance, Encephalopathy, Intoxication, Personality Disorder, Schizophrenia, Substance Abuse Disorder X-Ray, Labs, Meds, VS Vital Signs Date Time Temp Pulse Resp B/P (MAP) Pulse Ox O2 Delivery O2 Flow Rate FiO2 08/12/25 05:54 59 08/12/25 05:12 97.6 77 16 159/99 (119) 100 97.6 08/12/25 02:54 98.4 94 18 141/87 97 98.4 Lab Test 08/12/25 04:45 08/12/25 03:05 Range/Units Urine Color Light-yellow Yellow Urine Clarity Clear Clear Urine pH 7.0 5.0-9.0 Urine Specific [place] 1.019 1.001-1.035 Urine Protein Negative Negative Urine Ketones Negative Negative Urine Blood Negative Negative /uL Urine Nitrite Negative Negative Urine Bilirubin Negative Negative Urine Urobilinogen Normal Negative mg/dL Urine Leukocyte Esterase Negative Negative /uL Urine RBC 1 0 - 3 /hpf Urine Microscopic WBC 1 0-3 /HPF Urine Squamous Epithelial Cells None seen <5 /hpf Urine Bacteria None seen None Seen /hpf Urine Glucose Normal Normal mg/dL Urine Opiates Screen Neg NEGATIVE Urine Fentanyl Screen Neg NEGATIVE Urine Barbiturates Screen Neg NEGATIVE Urine Phencyclidine Screen Neg NEGATIVE Urine Amphetamines Screen Pos NEGATIVE Urine Benzodiazepines Screen Neg NEGATIVE Urine Cocaine Screen Neg NEGATIVE Urine Cannabinoids Screen Pos NEGATIVE White Blood Count 6.7 4.4-10.8 10^3/uL Red Blood Count 4.21 L 4.5-5.90 10^6/uL Hemoglobin 12.2 L 13.5-17.5 g/dL Hematocrit 35.9 L 41.0-53.0 % Mean Corpuscular Volume 85.3 80.0-100.0 fL Mean Corpuscular Hemoglobin 29.0 28.0-32.0 pg Mean Corpuscular Hemoglobin Concent 34.0 32.0-36.0 g/dL Red Cell Distribution Width 14.5 H 11.8-14.3 % Platelet Count 325 140-450 10^3/uL Mean Platelet Volume 8.4 6.9-10.8 fL Neutrophils (%) (Auto) 56.8 37.0-80.0 % Lymphocytes (%) (Auto) 30.1 10.0-50.0 % Monocytes (%) (Auto) 7.8 0.0-12.0 % Eosinophils (%) (Auto) 3.2 0.0-7.0 % Basophils (%) (Auto) 2.1 H 0.0-2.0 % Neutrophils # (Auto) 3.8 1.6-8.6 10 ^3/uL Lymphocytes # (Auto) 2.0 0.4-5.4 10 ^3/uL Monocytes # (Auto) 0.5 0-1.3 10 ^3/uL Eosinophils # (Auto) 0.2 0-0.8 10 ^3/uL Basophils # (Auto) 0.1 0-0.2 10 ^3/uL Nucleated Red Blood Cells 0.1 % Sodium Level 139 136-145 mmol/L Potassium Level 4.1 3.5-5.1 mmol/L Chloride Level 105 98-107 mmol/L Carbon Dioxide Level 27 20-31 mmol/L Anion Gap 7 5-15 Blood Urea Nitrogen 16 9-23 mg/dL Creatinine 0.99 0.700-1.30 mg/dL Glomerular Filtration Rate Calc 98 >90 mL/min BUN/Creatinine Ratio 16.2 10.0-20.0 Serum Glucose 106 74-106 mg/dL Lactic Acid Level 0.5 0.4-2.0 mmol/L Calcium Level 9.0 8.7-10.4 mg/dL Total Bilirubin 0.3 0.2-1.0 mg/dL Aspartate Amino Transferase (AST) 19 13-40 U/L Alanine Aminotransferase (ALT) 15 7-40 U/L Alkaline Phosphatase 55 46-116 U/L Troponin I High Sensitivity < 3 L </=54 ng/L Total Protein 6.5 5.7-8.2 g/dL Albumin 4.1 3.2-4.8 g/dL Current Medications Medications (Trade) Dose Ordered Sig/Sukhwinder Route Start Time Stop Time Status Last Admin Sodium Chloride 1,000 ml @ 1,000 mls/hr Q1H ONCE IV 08/12/25 05:45 08/12/25 06:44 08/12/25 06:25 Time of 1ST Reevaluation: 06:00 Reevaluation 1ST: Unchanged Patient Education/Counseling: Diagnosis, Treatment Family Education/Counseling: Other Assigned to Dr. Dr. Hastings Comments In the ER, CBC and CMP were within normal limits. Troponin was negative, lactic acid was normal 0.5. Urine analysis Is negative for UTI, UDS was positive for methamphetamine and cannabinoids. EKG showed sinus rhythm, heart rate 59 with no significant abnormalities. Patient has no medical complaints now. Patient is stable and is being discharged. Departure 1 Departure Time of Disposition: 06:02 Impression: Primary Impression: Methamphetamine abuse Additional Impression: Marijuana abuse Disposition: 30 STILL A PATIENT Condition: Stable Additional Instructions: Additional instructions: Please read all instructions provided in this packet carefully. You MUST follow-up with your primary care/family doctor in 1 to 2 days. If you are unable to see your primary care/family doctor, please return to our emergency room for re-assessment and re-evaluation in 1 to 2 days. Return to the emergency room here in our facility or to the nearest ER [facility] if your symptoms change or worsen. CONSULTATIONS: you MUST Follow-up for consultation as soon as possible with: -psychiatrist/psychology in 1-2 days. Please call for appointment You MUST call the consultants office yourself to make an appointment. You may need to arrange that through your insurance and/or your primary/family doctor. If you are unable to see the [facility] consultant in 1 to 2 days, you must return to our emergency room (or any other ER of your choice) for re-assessment and re- evaluation. Adequate fluid hydration. Although you have been discharged from the Emergency Department, this does not mean that you have a "clean bill of health". No definitive diagnosis for your symptoms has been made today. It is possible that you are in the process of developing a serious illness. This is why you must return to the ED without fail if any new or worsening symptoms develop. Seek help regarding your addiction. Discharged With: Self Critical Care Note Critical Care Time?: No Stability Stability form required: No Heart Score Heart Score: Heart Score Response (Comments) Value History N/A 0 EKG N/A 0 Age N/A 0 Risk Factors N/A 0 Troponin N/A 0 Total 0 ELPIDIO WEST Aug 12, 2025 05:21 АЛЕКСАНДР CROSS DO Aug 12, 2025 06:04
[2025-08-12 05:23] LABS: Amphetamine Screen, Urine Pos (NEGATIVE); Barbiturate Scree,Urine Neg (NEGATIVE); Benzodiazephine Screen, Urine Neg (NEGATIVE); Cocaine Screen, Urine Neg (NEGATIVE); Opiate Scree,Urine Neg (NEGATIVE); Phencyclidine Screen, Urine Neg (NEGATIVE)
--- NOTE | 2025-08-12 06:16 | ECG ---
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
[2025-08-12] MEDS: SODIUM CHLORIDE 0.9% 1,000 ML IV ONE (06:25)
[2025-08-12 08:18] VITALS: BP 143/91; PULSE 99; RESP 16; TEMP 97.7; O2SAT 100
== END 2025-08-12 12:28 | disposition home or self-care (01) ==
LOC: ER 02:50
DX: F15.10 Other stimulant abuse, uncomplicated (principal); F12.10 Cannabis abuse, uncomplicated; F17.210 Nicotine dependence, cigarettes, uncomplicated; Z79.899 Other long term (current) drug therapy
CPT/HCPCS: 36415; 80053; 80307; 80320; 81001; 83605; 84484; 85025; 93005; 96360; 99284; J7030